=== PATIENT | male | born 1940 | race Caucasian/White ===

== ENCOUNTER → 2016-12-28 | Outpatient (CLI) | payer MEDICARE, OTHER ==
--- NOTE | 2016-12-28 11:52 | XR ---
EXAMINATION TYPE: XR chest 2V DATE OF EXAM: 12/28/2016 10:56 AM COMPARISON: 03/09/16 HISTORY: Shortness of breath TECHNIQUE: Frontal and lateral views of the chest are obtained. FINDINGS: Scattered senescent parenchymal changes noted. Hyperinflation compatible with COPD. Calcified pleural plaques again noted. Right lower lobe infiltrate with small effusion. Heart size is stable. Mediastinal structures are stable and grossly unremarkable. No evidence for hilar prominence. Degenerative changes dorsal spine. IMPRESSION: 1. Right lower lobe infiltrate with small effusion.
--- NOTE | 2016-12-28 12:10 | XR ---
EXAMINATION TYPE: XR cervical spine comp DATE OF EXAM: 12/28/2016 10:56 AM CLINICAL HISTORY: pain COMPARISON: NONE TECHNIQUE: Frontal, lateral, oblique, swimmers, and open mouth view of the cervical spine are obtaine d. FINDINGS: The cervical spine is visualized in its entirety from C1 thru the top of T1 level. It is s atisfactory in alignment without evidence of acute fracture or dislocation. The pre-vertebral soft t issue appears within normal limits. Severe degenerative changes at C4-5 through C6-7. Ventral and john filemon spondylosis. The C1-C2 articulation is unremarkable on the open mouth view. The oblique images a re within normal limits. IMPRESSION: No acute fracture or dislocation is seen in the cervical spine.ICD 10 NO FRACTURE, INITI AL EVALUATION
== END | disposition home or self-care (01) ==
LOC: RADXRMAIN 10:37
PROVIDERS: ATTEND Family Medicine
DX: J90 Pleural effusion, not elsewhere classified (principal); R91.8 Other nonspecific abnormal finding of lung field; M50.30 Other cervical disc degeneration, unspecified cervical region
CPT/HCPCS: 71020; 72050

== ENCOUNTER → 2017-01-09 | Outpatient (CLI) | payer MEDICARE, OTHER ==
--- NOTE | 2017-01-09 19:31 | MR ---
EXAMINATION TYPE: MR cervical spine wo con DATE OF EXAM: 01/09/2017 7:06 PM COMPARISON: NONE HISTORY: CERVICAL DISC DEGENERATION, NECK PAIN TECHNIQUE: Multiplanar, multisequence images of the cervical spine were acquired. C2-C3: No evidence for degenerative disc disease. No disc bulge/herniation or protrusion. No Canal stenosis. Foramina are patent bilaterally. C3-C4: Central disc bulging with facet arthropathy greater on the left. There is mild left foraminal encroachment. No Canal stenosis. C4-C5: Severe degenerative disc disease with posterior disc bulging capped by spur. This results in m oderate canal stenosis. Uncovertebral joint hypertrophy is seen with moderate bilateral foraminal enc roachment. C5-C6: Severe degenerative disc disease with posterior disc osteophyte complex resulting in moderate canal stenosis. There is bilateral moderate foraminal encroachment. C6-C7: Severe degenerative disc disease with posterior disc osteophyte complex resulting in mild effa cement of thecal sac and mild bilateral foraminal encroachment. Mild canal stenosis. C7-T1: No evidence for degenerative disc disease. No disc bulge/herniation or protrusion. No Canal stenosis. Foramina are patent bilaterally. Cervical segments are intact. There is normal alignment. Cervical spinal cord is of normal signal. Craniovertebral junction relationships are within normal limits. IMPRESSION: 1. Multilevel severe degenerative disc disease with disc osteophyte complex and foraminal encroachmen t with multilevel foraminal encroachment involving levels C4-5, C5-6 and C6-C7.
== END | disposition home or self-care (01) ==
LOC: RADMRIMAIN 18:26
PROVIDERS: ATTEND Family Medicine
DX: M50.021 Cervical disc disorder at C4-C5 level with myelopathy (principal); M25.78 Osteophyte, vertebrae
CPT/HCPCS: 72141

== ENCOUNTER → 2017-02-08 | Outpatient (CLI) | payer MEDICARE, OTHER ==
--- NOTE | 2017-02-08 13:25 | XR ---
EXAMINATION TYPE: XR chest 2V DATE OF EXAM: 02/08/2017 HISTORY: J18.9 Pneumonia. REFERENCE: Previous study dated 12/28/2016. FINDINGS: There is pleural calcification present bilaterally. There is an enlarging right pleural effusion with associated atelectatic change. The left lung is laurent ar. Heart size is obscured. Lung volumes are prominent. IMPRESSION: 1. ENLARGING RIGHT-SIDED EFFUSION. 2. EVIDENCE OF PREVIOUS ASBESTOS EXPOSURE. 3. COPD.
== END | disposition home or self-care (01) ==
LOC: RADXRMAIN 12:27
PROVIDERS: ATTEND Family Medicine
DX: J44.9 Chronic obstructive pulmonary disease, unspecified (principal); J90 Pleural effusion, not elsewhere classified; Z77.090 Contact with and (suspected) exposure to asbestos
CPT/HCPCS: 71020

== ENCOUNTER → 2017-02-09 | Outpatient (CLI) | payer MEDICARE, OTHER ==
[2017-02-09 13:52] LABS: Blood Urea Nitrogen 17 mg/dL (9-20); Non-African American GFR(MDRD) >60 (>60 ml/min/1.73 sqM)
--- NOTE | 2017-02-09 15:15 | CT ---
EXAMINATION TYPE: CT chest w con DATE OF EXAM: 02/09/2017 COMPARISON: 03/16/2016 HISTORY: 76-year-old male Pleural effusion TECHNIQUE: Contiguous axial scanning of the chest after the administration of 100 mL of Omnipaque 300 . Coronal/sagittal reconstructions performed. CT DLP: 609mGycm. Automatic exposure control utilized for a dose reduction. FINDINGS: The heart is normal size without pericardial effusion. Mild coronary vessel calcifications are presen t in remarkable for coronary artery disease. Ascending aorta is mildly ectatic at 3.7 cm. Conventional arch vessel branching anatomy. Mild atheros clerotic narrowing at the origin of the left subclavian artery. There is enlarged caliber to the main right and left pulmonary arteries at 2.6 and 2.8 cm, respective ly, suggesting underlying pulmonary arterial hypertension. Nonenlarged and mildly enlarged mediastinal lymphadenopathy is redemonstrated. This is largely stable in size measuring up to 1.3 cm in the precarinal region. A right tracheobronchial angle lymph node i s larger now measuring 1.0 cm. A 1.5 cm subcarinal lymph node is stable. There are bilateral calcified pleural plaques suggesting prior asbestos exposure especially along the hemidiaphragms. The left lung appears clear. There is a new moderate sized pleural effusion on the right. Some internal septations obtained thicke sarah, enhancing pleura is suggested suggesting a complicated effusion. There is nodular soft tissue de nsity at the right cardiophrenic angle measuring 2.5 cm, axial image 41 and opacity at the posterior right base that could represent atelectatic/consolidated lung. Mass is difficult to exclude. The visualized upper abdomen shows an anterior splenule. Bones: Normal variant of sternal foramina. No osseous destructive process. IMPRESSION: 1. Moderate-sized complicated/complex right pleural effusion with mild diffuse thickening of the pleu ra. Consider thoracentesis and fluid analysis 2. Malignant pleural effusion not excluded given patient's prior asbestos exposure and a new 2.5 cm s oft tissue mass at the right cardiophrenic angle. Lung cancer and mesothelioma are in the differentia l. 3. Opacity at the right base adjacent to the pleural effusion could represent atelectatic/consolidate d lung. Additional site of pleural-based mass is difficult to exclude at this time. 4. Nonenlarged and mildly enlarged mediastinal lymphadenopathy is relatively similar to 03/16/2016.
== END | disposition home or self-care (01) ==
LOC: RADCTMAIN 13:15
PROVIDERS: ATTEND Family Medicine
DX: J90 Pleural effusion, not elsewhere classified (principal); R59.0 Localized enlarged lymph nodes
CPT/HCPCS: 82565; 84520; 71260; 36415; Q9967

== ENCOUNTER 2017-02-22 07:50 | Day surgery (SDC) | payer MEDICARE, OTHER ==
[2017-02-22 08:33] LABS: Mean Platelet Volume 8.5
[2017-02-22 08:35] VITALS: TEMP 97.6
[2017-02-22 08:41] LABS: Prothrombin Time 10.1 sec (9.0-12.0)
[2017-02-22 09:54] VITALS: PULSE 97; RESP 16
[2017-02-22 09:55] VITALS: BP 119/64
--- NOTE | 2017-02-22 10:30 | US ---
EXAMINATION TYPE: US thoracentesis DATE OF EXAM: 02/22/2017 COMPARISON: NONE HISTORY: Pleural effusion. FINDINGS: Maximal barrier technique was utilized. The skin overlying a suitable pocket of fluid was localized and the overlying skin prepped and draped. Lidocaine was used for local anesthesia. Ultras ound was used with sterile technique. A 5 [place] catheter over guide needle was advanced into the pl eural fluid collection using ultrasound guidance and the catheter advanced, needle removed. Approxim ately 0.12 liter(s) of sanguinous fluid was removed. Catheter was withdrawn and hemostasis achieved. There is no immediate complication. The patient discharged in stable condition without complicatio n. IMPRESSION: STATUS POST ULTRASOUND GUIDED THORACENTESIS, POST PROCEDURE CHEST X-RAY PENDING. THIS NH OCEDURE WAS PERFORMED BY THE UNDERSIGNED. Specimen sent for laboratory analysis
--- NOTE | 2017-02-22 10:34 | XR ---
EXAMINATION TYPE: XR chest 1V DATE OF EXAM: 02/22/2017 COMPARISON: Prior chest x-ray 02/08/2017 HISTORY: Status post right thoracentesis TECHNIQUE: Single frontal view of the chest is obtained. FINDINGS: Abnormal increased density persists at the right lung base. No evident pneumothorax. Abnor mal density adjacent to the right heart. Calcified pleural plaques noted.. IMPRESSION: No evident complication status post thoracentesis.
[2017-02-22 13:42] LABS: RBC, Body Fluid 104000 /uL
[2017-02-22 16:05] LABS: Glucose, BF Source Pleural Fluid; LDH, Body Fluid Source Pleural Fluid; T. Protein, Body Fluid Source Pleural Fluid; Total Protein, Body Fluid 3900 mg/dL
== END 2017-02-22 09:35 | disposition home or self-care (01) ==
LOC: RADPROMAIN 07:50
PROVIDERS: ATTEND Internal Medicine
DX: J91.0 Malignant pleural effusion (principal); J92.0 Pleural plaque with presence of asbestos; C45.0 Mesothelioma of pleura; J91.8 Pleural effusion in other conditions classified elsewhere; Z79.82 Long term (current) use of aspirin; Z79.891 Long term (current) use of opiate analgesic; Z79.899 Other long term (current) drug therapy
CPT/HCPCS: 32555; 36415; 71010; 82945; 83615; 84157; 85049; 85610; 87070; 87116; 87205; 87206; 88108; 88305; 89050

== ENCOUNTER → 2017-03-06 | Outpatient (CLI) | payer MEDICARE, OTHER ==
--- NOTE | 2017-03-06 14:46 | P.CON ---
Consult Note - . Consult date: 03/06/17 Assessment/Plan:: 76-year-old gentleman who began complaining of shortness of breath this winter in [place]. He was treated for pneumonia and came back to [place]. He continued to be short of breath and was given a course of steroids. He subsequently developed shingles. He was found to have a large right pleural effusion and this was tapped. Computed tomography scan of the chest at that time was consistent with pleural plaque disease as well as trapped lung. Chest x-ray showed some improvement but persistent fluid consistent with trapped lung. He is referred by Dr. Darling for evaluation. He is asymptomatic at this time. Previous medical history is significant for hypertension. He is currently treated with hydrochlorothiazide and baby aspirin.'s previous surgical history is negative. Patient does not smoke or use drugs and drinks alcohol only rarely. He has no known ALLERGIES. Complete physical examination and review of systems are present on the chart. Discussed with the patient the findings of significant pleural effusion associated with pleural disease. Pleural fluid was exudative. The patient does have a history of his spasticity exposure. The concern of course is mesothelioma. I recommendation is to undergo diagnostic thoracoscopy with partial lung decortication appropriate pleural biopsies and placement of a Pleurx catheter. This should allow us to a rule out mesothelioma as an etiologic agent and be control his pleural effusion and maintain him in an asymptomatic status. The indications for the procedure risks versus benefits and possible complications were outlined and discussed at length with the patient his and 3 daughters. All of their questions were answered. They would like to proceed as soon as possible. We will try to proceed sometime later this week.
[2017-03-06 15:14] LABS: CH 29.9; CHCM 33.6; HCT 43.1 % (39.0-53.0); HDW 2.61; HGB 14.4 gm/dL (13.0-17.5); MCH 29.7 pg (25.0-35.0); MCHC 33.3 g/dL (31.0-37.0); MCV 89.2 fL (80.0-100.0); RBC 4.83 m/uL (4.30-5.90)
[2017-03-06 15:21] LABS: Anion Gap 11 mmol/L; Blood Urea Nitrogen 12 mg/dL (9-20); Carbon Dioxide 29 mmol/L (22-30); Chloride 102 mmol/L (98-107); Glucose 101 mg/dL (74-99); Non-African American GFR(MDRD) >60 (>60 ml/min/1.73 sqM); Potassium 4.2 mmol/L (3.5-5.1); Sodium 142 mmol/L (137-145)
== END | disposition home or self-care (01) ==
LOC: LABPAT 14:26
PROVIDERS: ATTEND Thoracic Surgery (Cardiothoracic Vascular Surgery)
DX: Z01.812 Encounter for preprocedural laboratory examination (principal); J90 Pleural effusion, not elsewhere classified; Z79.899 Other long term (current) drug therapy
CPT/HCPCS: 80051; 82565; 82947; 84520; 85027

== ENCOUNTER 2017-03-10 10:15 | Inpatient (IN) | payer MEDICARE, OTHER ==
[2017-03-08 17:38] VITALS: BMI 28.0
[~2017-03-10 10:15] MED LIST: DEXAMETHASONE SOD PHOSPHATE 10 MG/ML 1 ML VIAL IV ONE; HYDROmorphone 1 MG/ML 1 ML SYRINGE IVP PRN; LACTATED RINGERS 1,000 ML IV SCH; LIDOCAINE 1% 20 ML VIAL (10MG/ML) FOR IV START INTRADERMA PRN; MIDAZOLAM 2 MG/2 ML VIAL IV PRN; ONDANSETRON 4 MG/2 ML VIAL IVP ONE; SCOPOLAMINE 1.5MG/72HR PATCH TRANSDERM ONE; ceFAZolin 1,000 MG in DEXTROSE/WATER 1 50ML.BAG IV ONE
[2017-03-10] MEDS ORDERED: LIDOCAINE 1% INJ 10MG/ML (20 ML MDV) ONE (14:19)
[2017-03-10] MEDS ORDERED: GLYCOPYRROLATE 0.2 MG/ML 2 ML VIAL ONE (14:19)
[2017-03-10] MEDS ORDERED: MIDAZOLAM 2 MG/2 ML VIAL ONE (14:19)
[2017-03-10] MEDS ORDERED: fentaNYL (PF) 50 MCG/ML 2 ML AMP ONE (14:19)
[2017-03-10] MEDS ORDERED: PROPOFOL 10 MG/ML 20 ML VIAL IV ONE (14:19)
[2017-03-10] MEDS ORDERED: ROCURONIUM BROMIDE 10 MG/ML 10 ML VIAL IV ONE (14:19)
[2017-03-10] MEDS ORDERED: NEOSTIGMINE 1 MG/ML 10 ML VIAL ONE (14:19)
[2017-03-10] MEDS ORDERED: SUCCINYLCHOLINE CHLORIDE 100 MG/5 ML SYR IV ONE (14:19)
[2017-03-10] MEDS ORDERED: LACTATED RINGERS 1,000 ML IV ONE (15:28)
[2017-03-10] MEDS ORDERED: IPRATROPIUM-ALBUTEROL 3 ML NEB IH PRN (16:03)
[2017-03-10] MEDS ORDERED: DEXTROSE 5%-0.45% NACL 1,000 ML IV SCH (16:03)
[2017-03-10] MEDS ORDERED: ONDANSETRON 4 MG/2 ML VIAL IVP PRN (16:03)
[2017-03-10] MEDS ORDERED: MORPHINE SULFATE 2 MG/ML SYRINGE IV PRN (16:03)
[2017-03-10] MEDS ORDERED: BUPIVACAINE (PF) 0.5% 30 ML VIAL SQ ONE (16:23)
--- NOTE | 2017-03-10 16:31 | P.OP ---
Date of Procedure: 03/10/17 Preoperative Diagnosis: Complex right pleural effusion, entrapped right lung Postoperative Diagnosis: Same Procedure(s) Performed: Right thoracoscopy, partial decortication of right lung, placement of right Pleurx catheter Implants: Right Pleurx catheter Anesthesia: MUKESH Surgeon: Mk Mulligan Estimated Blood Loss (ml): 25 Pathology: other (Right pleural fluid for cytology, right pleural content for culture and pathology) Condition: stable Disposition: PACU Indications for Procedure: The patient is a 76-year-old gentleman who is had some degree of shortness of breath and dyspnea since being treated for pneumonia this winter in [place] he has had another course of antibiotics without resolution he has been found to have a complicated right pleural effusion he has undergone a couple of thoracenteses without resolution Operative Findings: On entering the pleural cavity, there was bloody pleural fluid present. There was septation of the pleural space with Fibrinet stick pre-and gelatinous material present. There was a calcified plaque noted on the diaphragm. The right lung was encased in thick pleural peel. Description of Procedure: The patient was brought to the operating room, placed supine on the operating table, anesthetized and intubated with a double-lumen endotracheal tube. The tube was positioned with fiberoptic bronchoscopy. Patient was turned in the left lateral decubitus position and the right chest sterilely prepped and draped. 2 one-inch incisions were made in the right chest. The right pleural space was entered and some bloody fluid was suctioned out. Video thoracoscope was placed. There was a lot of fibrinous debris gelatinous material and septated fluid present in the right pleural space. This was all debrided free. The lung itself was cleared off of fibrinous exudate to the greatest extent possible without opening the chest. The remainder fairly thick pleural peel covering most of the lower lobe and a portion of the middle and upper lobe. Pulse lavage was performed of the pleural space. Once we had felt comfortable that we had removed all the debris and there was no significant bleeding Pleurx catheter was placed. We began with placing a needle into the pleural space in the ninth interspace in the anterior axillary line. This was performed under thoracoscopic guidance. A wire was threaded posteriorly and superiorly into the pleural space. A small incision was made in the right upper quadrant and the site of the wire was enlarged with an incision about a centimeter long. Pleurx catheter was tunneled from the right upper quadrant to the wire site and the cuff placed just under the skin at the exit site. Introducer and dilator were placed over the guidewire under thoracoscopic visualization and then the Pleurx catheter was placed into the pleural cavity via the introducer sheath. The introducer sheath was then removed. The Pleurx catheter was secured at the exit site with a 2-0 silk. The Pleurx catheter site was closed with a 4-0 Vicryl in 2 layers. Rib blocks were performed at the level of the incisions with half percent Marcaine. The thoracoscopic incisions were closed with layers of Vicryl suture. All 3 surgical incisions were then treated with skin glue and dry sterile dressings applied. A chest tube dressing was placed around the Pleurx catheter. The Pleurx catheter was connected to a Pleur-evac and the patient awakened and transferred to recovery in stable condition.
--- NOTE | 2017-03-10 16:43 | XR ---
EXAMINATION TYPE: XR chest 1V portable DATE OF EXAM: 03/10/2017 COMPARISON: 03/03/2017 HISTORY: Catheter placement TECHNIQUE: Single frontal view of the chest is obtained. FINDINGS: There is blunting of right costophrenic angle. There is patchy infiltrate and atelectasis in the right lower lobe. There are chest leads. There is a catheter over the medial right midlung in uncertain location. I see no pneumothorax. There is no heart failure. IMPRESSION: Pleural fluid is significantly decreased compared to last exam. No heart failure. No pne umothorax.
[2017-03-10] MEDS: IPRATROPIUM-ALBUTEROL 3 ML NEB IH SCH (20:34)
[2017-03-10] MEDS: HYDROcodone/APAP 5-325MG 1 EACH TAB PO PRN (20:56)
[2017-03-10] MEDS: HEPARIN SODIUM,PORCINE 5,000 UNIT/ML 1 ML VIAL SQ SCH (20:58)
--- NOTE | 2017-03-10 21:22 | P.CNPUL ---
History of Present Illness Consult date: 03/10/17 Requesting physician: Mk Mulligan Reason for consult: pleural effusion, other (Status post thoracoscopic lung biopsy. And decortication) Chief complaint: Complicated right-sided pleural effusion History of present illness: This is a 76-year-old white male with history of asbestos associated lung disease, chronic pleural plaques, patient was seen recently by his primary care physician for intermittent episodes of cough and shortness of breath. Chest x- ray and CT of the chest showed a good sized right-sided pleural effusion and possible pleural mass with rounded atelectasis affecting the right pleural surface. There was also evidence of nonspecific lymphadenopathy. I saw this patient on consultation, and I recommended diagnostic thoracentesis which was done by Dr. Harrell, fluid came back a grossly bloody, and it exudative in nature, with significantly elevated LDH level. Cytology came back negative, however considering the significantly elevated LDH, I felt that the fluid is most likely malignant unless proven otherwise. Patient came back for follow-up in the office after his thoracentesis, and it was noted the effusion was coming back and recurrent. Hence I recommended referral to Dr. Mulligan for thoracoscopic decortication, pleural biopsy, and hopefully rule out malignancy, more specifically mesothelioma. Patient underwent surgery today, postoperatively patient was admitted to the regular medical floor, and a Pleurx catheter was placed by Dr. Mulligan. Apparently the patient was found to have a trapped lung and significantly loculated pleural effusion. Postoperative chest x-ray showed significant improvement in his right-sided pleural effusion and loculation. Presently, the patient denies any shortness of breath, no cough no wheezing, chest pain seems to be fairly well controlled. Patient had no headaches no blurred vision no weight loss, no fatigue, no fever, no chills, no palpitations, no GI symptoms, no genitourinary symptoms no arthralgia, no weakness, no myalgia, no polyuria no polydipsia, no heat or cold intolerance. Review of Systems 14 point review of systems were obtained, please refer to pertinent positives and negatives in HPI. Past Medical History Past Medical History: Hypertension, Pneumonia Additional Past Medical History / Comment(s): Asbestos exposure which is work related (no evidence of asbestosis), BACK ISSUES with herniated disc. recent Shingles now resolved, pneumonia in January, intermittent swelling feet History of Any Multi-Drug Resistant Organisms: None Reported Date of last positivie culture/infection: unknown MDRO Source:: unknown Past Surgical History: Orthopedic Surgery Additional Past Surgical History / Comment(s): reattached LEFT PINKY, epidural pain injections Past Anesthesia/Blood Transfusion Reactions: No Reported Reaction Past Psychological History: No Psychological Hx Reported Smoking Status: Never smoker - Past Family History Sister(s) Family Medical History: Cancer Additional Family Medical History / Comment(s): lung Medications and Allergies Home Medications Medication Instructions Recorded Confirmed Type Aspirin 81 mg PO DAILY 08/10/14 03/10/17 History Hydrochlorothiazide [Hydrodiuril] 25 mg PO DAILY 02/20/17 03/10/17 History Allergies Allergy/AdvReac Type Severity Reaction Status Date / Time No Known Allergies Allergy Verified 03/10/17 17:07 Physical Exam Vitals: Vital Signs Temp Pulse Pulse Pulse Resp BP BP 03/10/17 20:52 92 03/10/17 20:38 92 03/10/17 20:06 96 16 127/76 03/10/17 19:06 92 16 126/74 03/10/17 18:06 97.8 F 87 18 133/74 03/10/17 17:36 97.6 F 87 18 130/79 03/10/17 17:34 97.6 F 87 18 130/79 03/10/17 17:00 89 16 135/77 03/10/17 16:46 83 16 146/82 03/10/17 16:30 81 16 148/81 03/10/17 16:19 98.2 F 88 12 139/79 03/10/17 11:35 131/81 03/10/17 11:00 97.5 F L 86 18 150/84 Pulse Ox 03/10/17 20:52 03/10/17 20:38 03/10/17 20:06 97 03/10/17 19:06 97 03/10/17 18:06 95 03/10/17 17:36 95 03/10/17 17:34 95 03/10/17 17:00 96 03/10/17 16:46 96 03/10/17 16:30 99 03/10/17 16:19 97 03/10/17 11:35 03/10/17 11:00 96 Intake and Output 03/10/17 03/10/17 03/10/17 06:59 14:59 22:59 Intake Total 1050 600 Output Total 200 Balance 1050 400 Intake: IV 1050 600 Output: Urine 150 Estimated Blood Loss 50 Other: Weight 86.183 kg Patient Weight 03/11/17 06:59 Weight 86.183 kg Physical Exam revealed a 76-year-old white male in no distress, patient is on nasal cannula. HEENT:[Neck is supple.] [No neck masses.] [No thyromegaly.] [No JVD.] Chest: [Diminished breath sounds at the right base, Pleurx catheter noted and a draining a bloody effusion. Cardiac Exam: [Normal S1 and S2, no S3 gallop, no murmur.] Abdomen: [Soft, nontender, no megaly, no rebound, no guarding, normal bowel sounds.] Extremities: [No clubbing, no edema, no cyanosis.] Neurological Exam: [No focal neurologic deficit.] Results - Diagnostic Findings Chest x-ray: image reviewed Assessment and Plan Plan: Impression: 1 status post right thoracoscopy, partial decortication of right lung, placement of right Pleurx catheter and pleural biopsy. 2 complicated pleural effusion, possibility of malignancy is still in the differential, final pathology is pending. 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 4 possible parapneumonic effusion. 5 history of asbestos exposure. And history of asbestos pleural plaques. Recommendation: Agree with the present treatment plan, continue incentive spirometry, and possibly discharge the patient home in a.m. with Pleurx catheter in place. Patient will need to have follow-up with Dr. Harrell or Dr. Conroy in one week post discharge. Hopefully by then we have the report from the pathology lab available. Time with Patient: Greater than 30
[2017-03-10] MEDS: ceFAZolin 2 GM in SODIUM CHLORIDE 0.9% 100 ML IVPB SCH (22:17)
[2017-03-11] MEDS: HYDROcodone/APAP 5-325MG 1 EACH TAB PO PRN ×2 (04:44→09:33)
[2017-03-11 07:13] LABS: Basophils % (A) 0 %; CH 29.6; CHCM 33.8; Eosinophils # (A) 0.1 k/uL (0-0.7); Eosinophils % (A) 3 %; HCT 36.9 % (39.0-53.0); HDW 2.63; HGB 12.7 gm/dL (13.0-17.5); Luc # (Auto) 0.13; Luc % (Auto) 2; Lymphocytes % (A) 18 %; MCH 30.2 pg (25.0-35.0); MCHC 34.3 g/dL (31.0-37.0); Mean Platelet Volume 7.7; Monocytes # (A) 0.5 k/uL (0-1.0); Monocytes % (A) 9 %; Neutrophils # (A) 3.5 k/uL (1.3-7.7); Neutrophils % (A) 67 %; RBC 4.19 m/uL (4.30-5.90); RDW 12.6 % (11.5-15.5); WBC 5.3 k/uL (3.8-10.6); WBC (Perox) 5.44
[2017-03-11 07:33] LABS: Anion Gap 9 mmol/L; Blood Urea Nitrogen 15 mg/dL (9-20); Calcium 8.7 mg/dL (8.4-10.2); Carbon Dioxide 27 mmol/L (22-30); Chloride 100 mmol/L (98-107); Glucose 99 mg/dL (74-99); Non-African American GFR(MDRD) >60 (>60 ml/min/1.73 sqM); Sodium 136 mmol/L (137-145)
--- NOTE | 2017-03-11 07:40 | XR ---
EXAMINATION TYPE: XR chest 1V portable DATE OF EXAM: 03/11/2017 Comparison: 03/10/2017 Clinical History: 76-year-old male postop, history of right-sided chest tube Findings: Heart remains borderline to mildly enlarged. Focal opacity along the right heart margin. Aorta within normal limits. Lumbar vasculature within normal limits. Continued strandy atelectasis of the left ba se. There is continued patchy peripheral right basilar opacity and a small right basilar pneumothorax , unchanged from prior. Trace effusion may be present as well, on the right. A right basilar drain is present. Some scattered calcified pleural plaques compatible with prior asbestos exposure. Impression: 1. Small right basilar hydropneumothorax, suspected similar to prior exam in retrospect. 2. Right basilar opacity could represent combination of atelectasis/infiltrate and pleural thickening . 3. Known mass along the right heart margin. A few scattered calcified pleural plaques.
[2017-03-11] MEDS: ASPIRIN 81 MG PO SCH (07:50)
[2017-03-11] MEDS: ceFAZolin 2 GM in SODIUM CHLORIDE 0.9% 100 ML IVPB SCH (07:50)
[2017-03-11] MEDS: HEPARIN SODIUM,PORCINE 5,000 UNIT/ML 1 ML VIAL SQ SCH ×2 (07:50→20:08)
[2017-03-11] MEDS: HYDROCHLOROTHIAZIDE 25 MG TAB PO SCH (07:50)
[2017-03-11] MEDS: IPRATROPIUM-ALBUTEROL 3 ML NEB IH SCH ×4 (07:51→19:01)
--- NOTE | 2017-03-11 11:18 | P.PN ---
Subjective This is a 76-year-old white male with history of asbestos associated lung disease, chronic pleural plaques, patient was seen recently by his primary care physician for intermittent episodes of cough and shortness of breath. Chest x- ray and CT of the chest showed a good sized right-sided pleural effusion and possible pleural mass with rounded atelectasis affecting the right pleural surface. There was also evidence of nonspecific lymphadenopathy. I saw this patient on consultation, and I recommended diagnostic thoracentesis which was done by Dr. Harrell, fluid came back a grossly bloody, and it exudative in nature, with significantly elevated LDH level. Cytology came back negative, however considering the significantly elevated LDH, I felt that the fluid is most likely malignant unless proven otherwise. Patient came back for follow-up in the office after his thoracentesis, and it was noted the effusion was coming back and recurrent. Hence I recommended referral to Dr. Mulligan for thoracoscopic decortication, pleural biopsy, and hopefully rule out malignancy, more specifically mesothelioma. Patient underwent surgery today, postoperatively patient was admitted to the regular medical floor, and a Pleurx catheter was placed by Dr. Mulligan. Apparently the patient was found to have a trapped lung and significantly loculated pleural effusion. Postoperative chest x-ray showed significant improvement in his right-sided pleural effusion and loculation. Presently, the patient denies any shortness of breath, no cough no wheezing, chest pain seems to be fairly well controlled. Patient had no headaches no blurred vision no weight loss, no fatigue, no fever, no chills, no palpitations, no GI symptoms, no genitourinary symptoms no arthralgia, no weakness, no myalgia, no polyuria no polydipsia, no heat or cold intolerance. The patient is seen again today 03/11/2017 in follow-up on the regular medical floor. He is awake and alert in no acute distress. He did undergo a right sided Pleurx catheter placement by Dr. Mulligan yesterday. There has been 330 MLS returned thus far. He is currently maintaining O2 saturations at 90% on room air. Today's chest x-ray reveals a small right basilar hydropneumothorax. There is right basilar opacity with atelectasis. 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 Objective - Vital Signs Vital signs: Vital Signs Temp 98.2 F 03/11/17 06:00 Pulse 96 03/11/17 10:55 Resp 24 03/11/17 08:30 BP 114/63 03/11/17 08:30 Pulse Ox 90 L 03/11/17 08:30 Intake & Output 03/10/17 03/11/17 03/11/17 18:59 06:59 18:59 Intake Total 1650 1780 2600 Output Total 200 820 Balance 2954 300 0876 Weight 86.183 kg 86.183 kg Intake: IV 1650 480 Dextrose 5%-0.45% NaCl 1, 480 000 ml @ 40 mls/hr IV . Q24H [facility] Rx#:[id number] Intake, IV Titration 1100 2100 Amount Dextrose 5%-0.45% NaCl 1, 800 1000 000 ml @ 40 mls/hr IV . Q24H [facility] Rx#:[id number] Lactated Ringers 1,000 ml 1000 As IV .STK-MED ONE Rx#: [id number] ceFAZolin 2 gm In Sodium 300 100 Chloride 0.9% 100 ml @ 100 mls/hr IVPB Q8H [facility] Rx#:[id number] Oral 200 500 Output: Drainage 330 Right Chest 330 Urine 150 490 Estimated Blood Loss 50 Other: # Voids 0 - Exam Physical Exam revealed a 76-year-old white male in no distress, patient is on nasal cannula. HEENT:[Neck is supple.] [No neck masses.] [No thyromegaly.] [No JVD.] Chest: [Diminished breath sounds at the right base, Pleurx catheter noted and a draining a bloody effusion. Cardiac Exam: [Normal S1 and S2, no S3 gallop, no murmur.] Abdomen: [Soft, nontender, no megaly, no rebound, no guarding, normal bowel sounds.] Extremities: [No clubbing, no edema, no cyanosis.] Neurological Exam: [No focal neurologic deficit.] - Labs CBC & Chem 7: 03/11/17 06:47 03/11/17 06:47 Labs: Abnormal Lab Results - Last 24 Hours (Table) 03/11/17 03/11/17 Range/Units 06:47 06:47 RBC 4.19 L (4.30-5.90) m/uL Hgb 12.7 L (13.0-17.5) gm/dL Hct 36.9 L (39.0-53.0) % Sodium 136 L (137-145) mmol/L Microbiology - Last 24 Hours (Table) 03/10/17 16:12 Gram Stain - Preliminary Pleural Fluid Body Fluid Culture - Preliminary 03/10/17 16:12 Gram Stain - Preliminary Pleural Fluid Tissue Culture - Preliminary 03/10/17 16:12 Fungal Culture - Preliminary Pleural Fluid 03/10/17 16:12 Anaerobic Culture - Preliminary Pleural Fluid 03/10/17 16:12 Fungal Culture - Preliminary Pleural Fluid 03/10/17 16:12 Anaerobic Culture - Preliminary Pleural Fluid 03/10/17 16:12 Acid Fast Bacilli Culture - Preliminary Pleural Fluid 03/10/17 16:12 Acid Fast Bacilli Culture - Preliminary Pleural Fluid Assessment and Plan Plan: Impression: 1 status post right thoracoscopy, partial decortication of right lung, placement of right Pleurx catheter and pleural biopsy. 2 complicated pleural effusion, possibility of malignancy is still in the differential, final pathology is pending. 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 4 possible parapneumonic effusion. 5 history of asbestos exposure. And history of asbestos pleural plaques. Plan: The patient was seen and evaluated by Dr. Darling. His chest x-ray was reviewed. He could be discharged home from the pulmonary standpoint and follow- up in one week in our office and we can repeat a chest x-ray then. We'll await pathology results and make further recommendations at that time.
--- NOTE | 2017-03-11 12:34 | P.PN ---
Subjective Principal diagnosis: Complex right pleural effusion, entrapped right lung POD #1 right thoracoscopy, partial decortication of right lung, placement of right Pleurx catheter. Patient's currently sitting up in bed in no acute distress. States his pain is controlled. He is however incredibly anxious about being discharged home today. In addition he had an episode of urinary retention last night requiring straight catheterization. Objective - Vital Signs Vital signs: Vital Signs Temp 98.2 F 03/11/17 06:00 Pulse 96 03/11/17 10:55 Resp 24 03/11/17 08:30 BP 114/63 03/11/17 08:30 Pulse Ox 90 L 03/11/17 08:30 Intake & Output 03/10/17 03/11/17 03/11/17 18:59 06:59 18:59 Intake Total 1650 1780 2600 Output Total 200 820 Balance 2710 721 4155 Weight 86.183 kg 86.183 kg 85.1 kg Intake: IV 1650 480 Dextrose 5%-0.45% NaCl 1, 480 000 ml @ 40 mls/hr IV . Q24H [facility] Rx#:[id number] Intake, IV Titration 1100 2100 Amount Dextrose 5%-0.45% NaCl 1, 800 1000 000 ml @ 40 mls/hr IV . Q24H [facility] Rx#:[id number] Lactated Ringers 1,000 ml 1000 As IV .STK-MED ONE Rx#: [id number] ceFAZolin 2 gm In Sodium 300 100 Chloride 0.9% 100 ml @ 100 mls/hr IVPB Q8H [facility] Rx#:[id number] Oral 200 500 Output: Drainage 330 Right Chest 330 Urine 150 490 Estimated Blood Loss 50 Other: # Voids 0 - Constitutional General appearance: Present: cooperative, no acute distress - Respiratory Details: Lungs sounds diminished bilaterally, coarse breath sounds on the right side. Respirations even, nonlabored. Currently on 2 L with oxygen saturation 97%. He was trialed on room air and initially was 94%, but proceeded to decrease to 90%, hence was placed back on 2 L nasal cannula. - Cardiovascular Details: S1, S2 present. Regular rate and rhythm. - Gastrointestinal Gastrointestinal Comment(s): Abdomen soft, nontender, nondistended. Active bowel sounds 4 quadrants. Tolerating diet. - Genitourinary Genitourinary Comment(s): Due to void. - Musculoskeletal Musculoskeletal: Present: gait normal, strength equal bilaterally - Psychiatric Psychiatric: Present: A&O x's 3, appropriate affect, intact judgment & insight - Allied health notes Allied health notes reviewed: case management - Labs CBC & Chem 7: 03/11/17 06:47 03/11/17 06:47 Labs: Abnormal Lab Results - Last 24 Hours (Table) 03/11/17 03/11/17 Range/Units 06:47 06:47 RBC 4.19 L (4.30-5.90) m/uL Hgb 12.7 L (13.0-17.5) gm/dL Hct 36.9 L (39.0-53.0) % Sodium 136 L (137-145) mmol/L Microbiology - Last 24 Hours (Table) 03/10/17 16:12 Gram Stain - Preliminary Pleural Fluid Body Fluid Culture - Preliminary 03/10/17 16:12 Gram Stain - Preliminary Pleural Fluid Tissue Culture - Preliminary 03/10/17 16:12 Fungal Culture - Preliminary Pleural Fluid 03/10/17 16:12 Anaerobic Culture - Preliminary Pleural Fluid 03/10/17 16:12 Fungal Culture - Preliminary Pleural Fluid 03/10/17 16:12 Anaerobic Culture - Preliminary Pleural Fluid 03/10/17 16:12 Acid Fast Bacilli Culture - Preliminary Pleural Fluid 03/10/17 16:12 Acid Fast Bacilli Culture - Preliminary Pleural Fluid - Imaging and Cardiology Chest x-ray: report reviewed, image reviewed Assessment and Plan (1) Recurrent right pleural effusion Status: Acute (2) History of pneumonia Status: Acute (3) History of thoracentesis Status: Acute (4) H/O asbestos exposure Status: Acute Plan: 1. [facility] was discontinued this morning, Pleurx catheter was capped. 2. Will do teaching with the patient and family members regarding Pleurx catheter drainage. 3. RN instructed to get patient up ambulate in the hallway. When patient voids bladder scan needs to be done. If there is no voiding 6 hours, RN is to bladder scan and straight cath for urinary retention greater than 300 mL. 4. Continue current medication regimen. 5. May discontinue this afternoon versus tomorrow morning depending on patient comfort. Time with Patient: Greater than 30
[2017-03-11 23:54] VITALS: RESP 16
[2017-03-12] MEDS: HYDROcodone/APAP 5-325MG 1 EACH TAB PO PRN ×3 (04:38→13:20)
[2017-03-12] MEDS: IPRATROPIUM-ALBUTEROL 3 ML NEB IH SCH ×2 (07:23→11:15)
[2017-03-12 07:39] VITALS: BP 107/55; TEMP 97.8
[2017-03-12] MEDS ORDERED: BISACODYL 10 MG SUPP RECTAL STA (08:09)
[2017-03-12] MEDS ORDERED: LACTULOSE 20 GM/30 ML CUP PO ONE (08:09)
[2017-03-12] MEDS: HEPARIN SODIUM,PORCINE 5,000 UNIT/ML 1 ML VIAL SQ SCH (08:11)
[2017-03-12] MEDS: ASPIRIN 81 MG PO SCH (08:11)
[2017-03-12] MEDS: HYDROCHLOROTHIAZIDE 25 MG TAB PO SCH (08:11)
--- NOTE | 2017-03-12 09:44 | P.PN ---
<Meli Ospina - Last Filed: 03/12/17 09:40> Subjective Principal diagnosis: Complex right pleural effusion, entrapped right lung POD #2 right thoracoscopy, partial decortication of right lung, placement of right Pleurx catheter. Postoperative urinary retention, resolved, expected outcome of surgery. Patient's currently sitting up in bed in no acute distress. States his pain is controlled. Urinary retention has resolved. Patient has been on and off oxygen overnight. Does state that he is ready to go home but may need oxygen. Objective - Vital Signs Vital signs: Vital Signs Temp 97.8 F 03/12/17 07:00 Pulse 100 03/12/17 07:36 Resp 16 03/12/17 08:00 BP 107/55 03/12/17 07:00 Pulse Ox 95 03/12/17 07:25 Intake & Output 03/11/17 03/12/17 03/12/17 18:59 06:59 18:59 Intake Total 5260 1500 Output Total 1640 600 200 Balance 3620 900 -200 Weight 85.1 kg 85.1 kg Intake: Intake, IV Titration 4200 Amount Dextrose 5%-0.45% NaCl 1, 2000 000 ml @ 40 mls/hr IV . Q24H [facility] Rx#:[id number] Lactated Ringers 1,000 ml 2000 As IV .STK-MED ONE Rx#: [id number] ceFAZolin 2 gm In Sodium 200 Chloride 0.9% 100 ml @ 100 mls/hr IVPB Q8H [facility] Rx#:[id number] Oral 1060 1500 Output: Urine 1390 600 200 Post Void Residual 250 Other: # Voids 1 3 1 - Constitutional General appearance: Present: cooperative, no acute distress - Respiratory Details: Lungs sounds diminished bilaterally. Respirations even, nonlabored. Currently on 2 L nasal cannula with oxygen saturation 95%. Right-sided Pleurx catheter present, capped, covered with dry intact dressing. - Cardiovascular Details: S1, S2 present. Regular rate and rhythm. - Gastrointestinal Gastrointestinal Comment(s): Abdomen soft, nontender, nondistended. Active bowel sounds 4 quadrants. Tolerating diet. - Genitourinary Genitourinary Comment(s): Continues to void large quantities clear, yellow urine. - Musculoskeletal Musculoskeletal: Present: gait normal, strength equal bilaterally - Psychiatric Psychiatric: Present: A&O x's 3, appropriate affect, intact judgment & insight - Allied health notes Allied health notes reviewed: nursing - Labs CBC & Chem 7: 03/11/17 06:47 03/11/17 06:47 Labs: Microbiology - Last 24 Hours (Table) 03/10/17 16:12 Acid Fast Bacilli Smear - Final Pleural Fluid Acid Fast Bacilli Culture - Preliminary 03/10/17 16:12 Acid Fast Bacilli Smear - Final Pleural Fluid Acid Fast Bacilli Culture - Preliminary 03/10/17 16:12 Gram Stain - Preliminary Pleural Fluid Tissue Culture - Preliminary 03/10/17 16:12 Gram Stain - Preliminary Pleural Fluid Body Fluid Culture - Preliminary Assessment and Plan (1) Recurrent right pleural effusion Status: Acute (2) History of pneumonia Status: Acute (3) History of thoracentesis Status: Acute (4) H/O asbestos exposure Status: Acute Plan: 1. Will drain patient's Pleurx this morning with teaching done with family. 2. Will perform home oxygen evaluation. 3. Continue current medication regimen. 4. Will discontinue later today with home care and possible home oxygen. To follow-up with Dr. Darling and Dr. Mulligan in the office. Time with Patient: Greater than 30 <Fernando Mares - Last Filed: 03/12/17 11:25> Objective - Vital Signs Vital signs: Vital Signs Temp 97.8 F 03/12/17 07:00 Pulse 92 03/12/17 11:15 Resp 16 03/12/17 08:00 BP 107/55 03/12/17 07:00 Pulse Ox 95 03/12/17 07:25 Intake & Output 03/11/17 03/12/17 03/12/17 18:59 06:59 18:59 Intake Total 5260 1500 Output Total 1640 600 200 Balance 3620 900 -200 Weight 85.1 kg 85.1 kg Intake: Intake, IV Titration 4200 Amount Dextrose 5%-0.45% NaCl 1, 2000 000 ml @ 40 mls/hr IV . Q24H [facility] Rx#:[id number] Lactated Ringers 1,000 ml 2000 As IV .STK-MED ONE Rx#: [id number] ceFAZolin 2 gm In Sodium 200 Chloride 0.9% 100 ml @ 100 mls/hr IVPB Q8H [facility] Rx#:[id number] Oral 1060 1500 Output: Urine 1390 600 200 Post Void Residual 250 Other: # Voids 1 3 1 - Labs CBC & Chem 7: 03/11/17 06:47 03/11/17 06:47 Labs: Microbiology - Last 24 Hours (Table) 03/10/17 16:12 Acid Fast Bacilli Smear - Final Pleural Fluid Acid Fast Bacilli Culture - Preliminary 03/10/17 16:12 Acid Fast Bacilli Smear - Final Pleural Fluid Acid Fast Bacilli Culture - Preliminary 03/10/17 16:12 Gram Stain - Preliminary Pleural Fluid Tissue Culture - Preliminary 03/10/17 16:12 Gram Stain - Preliminary Pleural Fluid Body Fluid Culture - Preliminary Assessment and Plan Plan: The patient has been able to void spontaneously overnight. He remains on 2 L nasal cannula. We will arrange for him to receive home oxygen. He will be discharged home later today.
--- NOTE | 2017-03-12 10:18 | P.PN ---
Subjective This is a 76-year-old white male with history of asbestos associated lung disease, chronic pleural plaques, patient was seen recently by his primary care physician for intermittent episodes of cough and shortness of breath. Chest x- ray and CT of the chest showed a good sized right-sided pleural effusion and possible pleural mass with rounded atelectasis affecting the right pleural surface. There was also evidence of nonspecific lymphadenopathy. I saw this patient on consultation, and I recommended diagnostic thoracentesis which was done by Dr. Harrell, fluid came back a grossly bloody, and it exudative in nature, with significantly elevated LDH level. Cytology came back negative, however considering the significantly elevated LDH, I felt that the fluid is most likely malignant unless proven otherwise. Patient came back for follow-up in the office after his thoracentesis, and it was noted the effusion was coming back and recurrent. Hence I recommended referral to Dr. Mulligan for thoracoscopic decortication, pleural biopsy, and hopefully rule out malignancy, more specifically mesothelioma. Patient underwent surgery today, postoperatively patient was admitted to the regular medical floor, and a Pleurx catheter was placed by Dr. Mulligan. Apparently the patient was found to have a trapped lung and significantly loculated pleural effusion. Postoperative chest x-ray showed significant improvement in his right-sided pleural effusion and loculation. Presently, the patient denies any shortness of breath, no cough no wheezing, chest pain seems to be fairly well controlled. Patient had no headaches no blurred vision no weight loss, no fatigue, no fever, no chills, no palpitations, no GI symptoms, no genitourinary symptoms no arthralgia, no weakness, no myalgia, no polyuria no polydipsia, no heat or cold intolerance. The patient is seen again today 03/11/2017 in follow-up on the regular medical floor. He is awake and alert in no acute distress. He did undergo a right sided Pleurx catheter placement by Dr. Mulligan yesterday. There has been 330 MLS returned thus far. He is currently maintaining O2 saturations at 90% on room air. Today's chest x-ray reveals a small right basilar hydropneumothorax. There is right basilar opacity with atelectasis. 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 The patient is seen again today 03/12/2017 in follow-up on the regular medical floor. He continues to do well. He is awake and alert in no acute distress. He does have some desaturations in the 80s on room air. He will be going home with home oxygen for now. He is breathing easier today as compared to yesterday. Did have this Pleurx catheter drained as well. No worsening shortness of breath, cough or congestion. Objective - Vital Signs Vital signs: Vital Signs Temp 97.8 F 03/12/17 07:00 Pulse 100 03/12/17 07:36 Resp 16 03/12/17 08:00 BP 107/55 03/12/17 07:00 Pulse Ox 95 03/12/17 07:25 Intake & Output 03/11/17 03/12/17 03/12/17 18:59 06:59 18:59 Intake Total 5260 1500 Output Total 1640 600 200 Balance 3620 900 -200 Weight 85.1 kg 85.1 kg Intake: Intake, IV Titration 4200 Amount Dextrose 5%-0.45% NaCl 1, 2000 000 ml @ 40 mls/hr IV . Q24H [facility] Rx#:[id number] Lactated Ringers 1,000 ml 2000 As IV .STK-MED ONE Rx#: [id number] ceFAZolin 2 gm In Sodium 200 Chloride 0.9% 100 ml @ 100 mls/hr IVPB Q8H [facility] Rx#:[id number] Oral 1060 1500 Output: Urine 1390 600 200 Post Void Residual 250 Other: # Voids 1 3 1 - Exam Physical Exam revealed a 76-year-old white male in no distress, patient is on nasal cannula. HEENT:[Neck is supple.] [No neck masses.] [No thyromegaly.] [No JVD.] Chest: [Diminished breath sounds at the right base, Pleurx catheter noted and a draining a bloody effusion. Cardiac Exam: [Normal S1 and S2, no S3 gallop, no murmur.] Abdomen: [Soft, nontender, no megaly, no rebound, no guarding, normal bowel sounds.] Extremities: [No clubbing, no edema, no cyanosis.] Neurological Exam: [No focal neurologic deficit.] - Labs CBC & Chem 7: 03/11/17 06:47 03/11/17 06:47 Labs: Microbiology - Last 24 Hours (Table) 03/10/17 16:12 Acid Fast Bacilli Smear - Final Pleural Fluid Acid Fast Bacilli Culture - Preliminary 03/10/17 16:12 Acid Fast Bacilli Smear - Final Pleural Fluid Acid Fast Bacilli Culture - Preliminary 03/10/17 16:12 Gram Stain - Preliminary Pleural Fluid Tissue Culture - Preliminary 03/10/17 16:12 Gram Stain - Preliminary Pleural Fluid Body Fluid Culture - Preliminary Assessment and Plan Plan: Impression: 1 status post right thoracoscopy, partial decortication of right lung, placement of right Pleurx catheter and pleural biopsy. 2 complicated pleural effusion, possibility of malignancy is still in the differential, final pathology is pending. 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 4 possible parapneumonic effusion. 5 history of asbestos exposure. And history of asbestos pleural plaques. Plan: The patient was seen and evaluated by Dr. Darling. He could be discharged home from the pulmonary standpoint and follow-up in one week in our office and we can repeat a chest x-ray then. O2 will be ordered. We'll await pathology results and make further recommendations at that time.
[2017-03-12 11:26] VITALS: PULSE 100
--- NOTE | 2017-03-14 13:07 | P.DS ---
Providers Date of admission: 03/10/17 10:15 Attending physician: Mk Mulligan Consults: 03/11/17 12:33 Consult Physician Routine Consulting Provider: Payton Darling Reason/Comments: pulmonary management Do you want consulting provider notified?: Already Contacted Primary care physician: Jean Hickey - Discharge Diagnosis(es) (1) Recurrent right pleural effusion Status: Acute (2) History of pneumonia Status: Acute (3) History of thoracentesis Status: Acute (4) H/O asbestos exposure Status: Acute Hospital Course: PRINCIPAL PROCEDURE: [] 1.[ Right thoracoscopy, partial decortication of right lung, placement of right Pleurx catheter] HISTORY OF PRESENT ILLNESS: [This 76-year-old gentleman with history of asbestos exposure and chronic pleural plaques was seen by his primary care physician for intermittent episodes of cough and shortness of breath. He had chest x-rays and a CAT scan of the chest which demonstrated right-sided pleural effusion with possible pleural mass, as well as atelectasis affecting the right pleural surface. In addition, he had nonspecific lymphadenopathy. He was referred to Dr. Harrell for diagnostic thoracentesis. Fluid collected was exudative, cytology was negative but due to a significantly elevated LDH it was felt that malignancy was a possibility. He continued to follow with Dr. Harrell for recurrent effusions. He was referred to Dr. Mulligan for biopsy and surgical recommendations for complex right pleural effusion and entrapped right lung. Dr. Mulligan discussed surgical interventions, all risks and benefits were explained to the patient and his family, and the patient agreed to surgery.] HOSPITAL COURSE:[ The patient was brought to the hospital on 03/10/2017, taken to the preoperative area, prepared in usual fashion, and subsequently taken to the operating room where Dr. Mulligan performed an elective right thoracoscopy, partial decortication of the right lung, and placement of a right Pleurx catheter. Upon completion of surgery the patient was extubated and taken to the postanesthesia care unit where he was recovered, monitored hemodynamically, and eventually admitted to the medical/surgical unit for further monitoring as his Pleurx catheter was connected to an atrium drainage system. On postop day # 1 his Pleurx catheter was disconnected from the atrium, and was capped. The patient did have some urinary retention which resolved without intervention. The family and patient received written and verbal teaching as well as a demonstration of appropriate drainage using the Pleurx system. The patient's oxygen was titrated down, he was ambulatory in the hallway, and he was ready to be discharged home on postoperative day #2 with [facility] care to follow. He received written and verbal instruction regarding his medications, activity restrictions, signs and symptoms requiring physician notification, and follow- up appointments.] COMPLICATIONS: [The patient experienced urinary retention postoperatively which resolved without intervention.] CONSULTATIONS: 1.[ Dr. Darling from pulmonology] DISCHARGE INSTRUCTIONS: 1. No driving for 2 weeks, or until physician gives their ok. 2. The patient should sleep in their own bed, no medical bed needed.. 3. No heavy lifting. 4. Continue pain control per as needed orders. 5. Continue with incentive spirometry 6. Home care to teach/reinforce drainage of pleurx catheter with patient/ family. 7. Patient may drain pleurex catheter as needed for symptom management. Do not drain more than 1000 ml per 24 hours. Dressing to be changed when pleurex cath drained, but at least every 3 days. Home care to call Dr. Mulligan's office weekly with drainage amounts. [phone] Plan - Discharge Summary New Discharge Prescriptions: New HYDROcodone/APAP 5-325MG [[place] 5-325] 1 - 2 each PO Q6HR PRN #30 tab PRN Reason: Pain 6-10 Continue Aspirin 81 mg PO DAILY Hydrochlorothiazide [Hydrodiuril] 25 mg PO DAILY Discharge Medication List Aspirin 81 mg PO DAILY 08/10/14 [History] Hydrochlorothiazide [Hydrodiuril] 25 mg PO DAILY 02/20/17 [History] HYDROcodone/APAP 5-325MG [[place] 5-325] 1 - 2 each PO Q6HR PRN #30 tab 03/12/17 [ Rx] Follow up Appointment(s)/Referral(s): Payton Darling MD [STAFF PHYSICIAN] - 1 Week Mk Mulligan MD [STAFF PHYSICIAN] - 1 Week [facility], [NON-STAFF] - Patient Instructions/Handouts: Hydrocodone/Acetaminophen (By mouth), Viral Pneumonia (DC), Thoracentesis (DC), Pleural Effusion (DC) Activity/Diet/Wound Care/Special Instructions: DISCHARGE INSTRUCTIONS: 1. No driving for 2 weeks, or until physician gives their ok. 2. The patient should sleep in their own bed, no medical bed needed.. 3. No heavy lifting. 4. Continue pain control per as needed orders. 5. Continue with incentive spirometry 6. Home care to teach/reinforce drainage of pleurx catheter with patient/ family. 7. Patient may drain pleurex catheter as needed for symptom management. Do not drain more than 1000 ml per 24 hours. Dressing to be changed when pleurex cath drained, but at least every 3 days. Home care to call Dr. Mulligan's office weekly with drainage amounts. [phone] [facility] to follow with patient. Please contact doctors office on Monday to make appointments Discharge Disposition: HOME WITH HOME HEALTH SERVICES
--- NOTE | 2017-03-22 14:22 | CDI ---
In responding to this query, please exercise your independent professional judgment. The [facility] Coding Staff and Clinical Documentation Specialists appreciate your assistance in clarifying documentation, maintaining compliance with coding guidelines, accurately documenting patients condition and capturing severity of illness. The fact that a question is asked does not imply that any particular answer is desired or expected. Communication forms are a method of clarifying documentation and are not made part of the Legal Health Record. Thank you in advance for your clarification. Last Revision, November 2015 Mayra Beth [address] [facility] [place] [address] Documentation Clarification Form Date: 03/22/2017 2:07:00 PM From: Elinor Cici Phone: Admit Date: 03/10/2017 10:15:00 AM Patient Name: Toan Watson Visit Number: [id number] Discharge Date: Dr. 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 He continued to be short of breath and was given a course of steroids. Patient was found to have a large right [facility] was consistent with pleural palque disease as well as trapped lung. Chest x- ray showed some improvement but persistent fluid consistent with trapped lung. Patient history/risk factors: History of asbestos exposure. Clinical Indicators: Pleural effusion associated with pleural disease. Shortness of breath. Treatment: Thoracenteses without resolution. In your professional opinion, do you agree with the pathology report specifying Malignant Mesothelioma Sarcomatoid Type? Yes No Other (please specify) Unable to determine Please document in your progress notes and discharge summary in order to capture severity of illness and risk of mortality. Include clinical findings that support your diagnosis. FYI: Press F11 to launch patient chart If you have a question about this query, please contact Rani Crum, Skeet Operator at [phone]. THOMAS
== END 2017-03-12 14:26 | disposition home health service (06) | DRG 827 ==
LOC: 2ORMAIN 10:15 → 5MS5E 16:02
PROVIDERS: ADMIT Thoracic Surgery (Cardiothoracic Vascular Surgery); ATTEND Thoracic Surgery (Cardiothoracic Vascular Surgery)
PROC: 0WH933Z Insertion of Infusion Device into Right Pleural Cavity, Percutaneous Approach (ICD-10-PCS; 2017-03-10)
PROC: 0BDN4ZZ Extraction of Right Pleura, Percutaneous Endoscopic Approach (ICD-10-PCS; principal; 2017-03-10 12:00)
DX: C45.9 Mesothelioma, unspecified (principal); J90 Pleural effusion, not elsewhere classified; J94.8 Other specified pleural conditions; J98.11 Atelectasis; I10 Essential (primary) hypertension; R33.8 Other retention of urine; R74.0 Nonspecific elevation of levels of transaminase and lactic acid dehydrogenase [LDH]; J98.4 Other disorders of lung; Z79.82 Long term (current) use of aspirin; Z79.899 Other long term (current) drug therapy; Z87.01 Personal history of pneumonia (recurrent); Z77.090 Contact with and (suspected) exposure to asbestos
CPT/HCPCS: 71010; 80048; 85025; 87070; 87075; 87102; 87116; 87205; 87206; 88305; 88341; 88342; 94640; 94760

== ENCOUNTER 2017-03-13 03:57 | Emergency (ER) | payer MEDICARE, OTHER ==
[2017-03-13 04:01] VITALS: TEMP 98.4
[2017-03-13] MEDS ORDERED: ALBUTEROL NEBULIZED 2.5 MG/3 ML INHALATION STA (04:08)
[2017-03-13] MEDS ORDERED: SODIUM CHLORIDE 0.9% 1,000 ML IV STA (04:08)
[2017-03-13] MEDS ORDERED: IPRATROPIUM 0.5 MG/2.5 ML NEBU INHALATION STA (04:08)
--- NOTE | 2017-03-13 04:23 | ED ---
General Adult HPI - General Chief complaint: Shortness of Breath Stated complaint: JESSICA Time Seen by Provider: 03/13/17 04:07 Source: patient, RN notes reviewed, old records reviewed Mode of arrival: wheelchair Limitations: no limitations - History of Present Illness Initial comments: This is a 76-year-old male to the ER for evaluation. Patient is a for evaluation of shortness of breath, increased arely with increased cough and congestion, history of asthma history of heart disease. Patient has history of high blood pressure history of pneumonia. No fevers, does have increased cough and congestion. Patient states he does currently of drain tubes in his lungs, and the recently placed for drainage - Related Data Home Medications Medication Instructions Recorded Confirmed Aspirin 81 mg PO DAILY 08/10/14 03/13/17 Hydrochlorothiazide [Hydrodiuril] 25 mg PO DAILY 02/20/17 03/13/17 Previous Rx's Medication Instructions Recorded HYDROcodone/APAP 5-325MG [[place] 1 - 2 each PO Q6HR PRN #30 tab 03/12/17 5-325] Allergies Allergy/AdvReac Type Severity Reaction Status Date / Time No Known Allergies Allergy Verified 03/10/17 17:07 Review of Systems ROS Statement: Those systems with pertinent positive or pertinent negative responses have been documented in the HPI. ROS Other: All systems not noted in ROS Statement are negative. Past Medical History Past Medical History: Hypertension, Pneumonia Additional Past Medical History / Comment(s): Asbestos exposure which is work related (no evidence of asbestosis), BACK ISSUES with herniated disc. recent Shingles now resolved, pneumonia in January, intermittent swelling feet History of Any Multi-Drug Resistant Organisms: None Reported Date of last positivie culture/infection: unknown MDRO Source:: unknown Past Surgical History: Orthopedic Surgery Additional Past Surgical History / Comment(s): reattached LEFT PINKY, epidural pain injections; Bilateral thoracotomy tubes placed Past Anesthesia/Blood Transfusion Reactions: No Reported Reaction Past Psychological History: No Psychological Hx Reported Smoking Status: Never smoker Past Alcohol Use History: None Reported Past Drug Use History: None Reported - Past Family History Sister(s) Family Medical History: Cancer Additional Family Medical History / Comment(s): lung General Exam Limitations: no limitations General appearance: alert, in no apparent distress, anxious Head exam: Present: atraumatic, normocephalic, normal inspection Eye exam: Present: normal appearance, PERRL, EOMI. Absent: scleral icterus, conjunctival injection, periorbital swelling ENT exam: Present: normal exam, mucous membranes moist Neck exam: Present: normal inspection. Absent: tenderness, meningismus, lymphadenopathy Respiratory exam: Present: normal lung sounds bilaterally, respiratory distress , wheezes, accessory muscle use, decreased breath sounds, prolonged expiratory. Absent: rales, rhonchi, stridor Cardiovascular Exam: Present: regular rate, normal rhythm, normal heart sounds. Absent: systolic murmur, diastolic murmur, rubs, gallop, clicks GI/Abdominal exam: Present: soft, normal bowel sounds. Absent: distended, tenderness, guarding, rebound, rigid Extremities exam: Present: normal inspection, full ROM, normal capillary refill. Absent: tenderness, pedal edema, joint swelling, calf tenderness Back exam: Present: normal inspection Neurological exam: Present: alert, oriented X3, CN II-XII intact Psychiatric exam: Present: normal affect, normal mood Skin exam: Present: warm, dry, intact, normal color. Absent: rash Course Vital Signs 03/13/17 03/13/17 03/13/17 03:58 04:01 05:01 Temperature 98.4 F Pulse Rate 94 89 84 Respiratory 18 16 Rate Blood Pressure 130/71 137/82 O2 Sat by Pulse 94 L 98 Oximetry 03/13/17 03/13/17 05:18 05:44 Temperature Pulse Rate 89 89 Respiratory Rate Blood Pressure O2 Sat by Pulse Oximetry - Reevaluation(s) Reevaluation #1: 03/13/17 07:17 Patient symptoms are much improved after breathing treatment, oxygenation Reevaluation #2: 03/13/17 07:17 Patient was ambulatory around the emergency department, patient had no decrease in pulse ox and feels good EKG Findings - EKG Comments: EKG Findings:: EKG shows normal sinus rate of 90, ND 166, QRS 142, QTC 49 Medical Decision Making - Medical Decision Making 76 mallear for evaluation of shortness of cough and congestion, actually eventually his lab work is normal patient can be discharged home, at this time he feels well - Lab Data Result diagrams: 03/13/17 04:28 03/13/17 04:28 Lab Results 03/13/17 03/13/17 03/13/17 Range/Units 04:28 04:28 04:28 WBC 5.5 (3.8-10.6) k/uL RBC 4.45 (4.30-5.90) m/uL Hgb 13.5 (13.0-17.5) gm/dL Hct 39.3 (39.0-53.0) % MCV 88.3 (80.0-100.0) fL MCH 30.3 (25.0-35.0) pg MCHC 34.3 (31.0-37.0) g/dL RDW 12.7 (11.5-15.5) % Plt Count 231 (150-450) k/uL Neutrophils % 66 % Lymphocytes % 16 % Monocytes % 10 % Eosinophils % 5 % Basophils % 1 % Neutrophils # 3.6 (1.3-7.7) k/uL Lymphocytes # 0.9 L (1.0-4.8) k/uL Monocytes # 0.5 (0-1.0) k/uL Eosinophils # 0.3 (0-0.7) k/uL Basophils # 0.0 (0-0.2) k/uL PT (9.0-12.0) sec INR (<1.1) APTT (22.0-30.0) sec Sodium 137 (137-145) mmol/L Potassium 3.9 (3.5-5.1) mmol/L Chloride 99 (98-107) mmol/L Carbon Dioxide 26 (22-30) mmol/L Anion Gap 12 mmol/L BUN 14 (9-20) mg/dL Creatinine 0.94 (0.66-1.25) mg/dL Est GFR (MDRD) Af Amer >60 (>60 ml/min/1.73 sqM) Est GFR (MDRD) Non-Af >60 (>60 ml/min/1.73 sqM) Glucose 108 H (74-99) mg/dL Calcium 9.4 (8.4-10.2) mg/dL Magnesium 1.9 (1.6-2.3) mg/dL Total Bilirubin 1.0 (0.2-1.3) mg/dL AST 27 (17-59) U/L ALT 22 (21-72) U/L Alkaline Phosphatase 115 (38-126) U/L Total Creatine Kinase 120 (55-170) U/L CK-MB (CK-2) 0.9 (0.0-2.4) ng/mL CK-MB (CK-2) Rel Index 0.8 Troponin I <0.012 (0.000-0.034) ng/mL NT-Pro-B Natriuret Pep pg/mL Total Protein 7.0 (6.3-8.2) g/dL Albumin 3.8 (3.5-5.0) g/dL 03/13/17 03/13/17 Range/Units 04:28 04:28 WBC (3.8-10.6) k/uL RBC (4.30-5.90) m/uL Hgb (13.0-17.5) gm/dL Hct (39.0-53.0) % MCV (80.0-100.0) fL MCH (25.0-35.0) pg MCHC (31.0-37.0) g/dL RDW (11.5-15.5) % Plt Count (150-450) k/uL Neutrophils % % Lymphocytes % % Monocytes % % Eosinophils % % Basophils % % Neutrophils # (1.3-7.7) k/uL Lymphocytes # (1.0-4.8) k/uL Monocytes # (0-1.0) k/uL Eosinophils # (0-0.7) k/uL Basophils # (0-0.2) k/uL PT 10.1 (9.0-12.0) sec INR 1.0 (<1.1) APTT 25.0 (22.0-30.0) sec Sodium (137-145) mmol/L Potassium (3.5-5.1) mmol/L Chloride (98-107) mmol/L Carbon Dioxide (22-30) mmol/L Anion Gap mmol/L BUN (9-20) mg/dL Creatinine (0.66-1.25) mg/dL Est GFR (MDRD) Af Amer (>60 ml/min/1.73 sqM) Est GFR (MDRD) Non-Af (>60 ml/min/1.73 sqM) Glucose (74-99) mg/dL Calcium (8.4-10.2) mg/dL Magnesium (1.6-2.3) mg/dL Total Bilirubin (0.2-1.3) mg/dL AST (17-59) U/L ALT (21-72) U/L Alkaline Phosphatase (38-126) U/L Total Creatine Kinase (55-170) U/L CK-MB (CK-2) (0.0-2.4) ng/mL CK-MB (CK-2) Rel Index Troponin I (0.000-0.034) ng/mL NT-Pro-B Natriuret Pep 68 pg/mL Total Protein (6.3-8.2) g/dL Albumin (3.5-5.0) g/dL - Radiology Data Radiology results: report reviewed (Chest x-ray remains improved from prior), image reviewed Disposition Clinical Impression: History of thoracentesis, H/O asbestos exposure Disposition: HOME SELF-CARE Condition: Good Instructions: Bronchospasm (ED) Referrals: Jean Hickey MD [Primary Care Provider] - 1-2 days
[2017-03-13 04:51] LABS: Basophils % (A) 1 %; CH 29.8; CHCM 33.9; Eosinophils # (A) 0.3 k/uL (0-0.7); Eosinophils % (A) 5 %; HCT 39.3 % (39.0-53.0); HDW 2.63; HGB 13.5 gm/dL (13.0-17.5); Luc # (Auto) 0.18; Luc % (Auto) 3; Lymphocytes # (A) 0.9 k/uL (1.0-4.8); Lymphocytes % (A) 16 %; MCH 30.3 pg (25.0-35.0); MCHC 34.3 g/dL (31.0-37.0); MCV 88.3 fL (80.0-100.0); Mean Platelet Volume 7.5; Monocytes # (A) 0.5 k/uL (0-1.0); Monocytes % (A) 10 %; Neutrophils # (A) 3.6 k/uL (1.3-7.7); Neutrophils % (A) 66 %; RBC 4.45 m/uL (4.30-5.90); RDW 12.7 % (11.5-15.5); WBC 5.5 k/uL (3.8-10.6); WBC (Perox) 5.97
[2017-03-13] MEDS ORDERED: ALBUTEROL NEBULIZED 2.5 MG/3 ML INHALATION ONE (04:52)
[2017-03-13] MEDS ORDERED: IPRATROPIUM 0.5 MG/2.5 ML NEBU INHALATION ONE (04:52)
[2017-03-13 05:03] LABS: Creatine Kinase 120 U/L (55-170)
[2017-03-13 05:10] LABS: Prothrombin Time 10.1 sec (9.0-12.0)
[2017-03-13 05:16] LABS: Creatine Kinase MB 0.9 ng/mL (0.0-2.4); Troponin I <0.012 ng/mL (0.000-0.034)
--- NOTE | 2017-03-13 05:46 | XR ---
EXAM: XR Chest, 2 Views CLINICAL HISTORY: Reason: difficulty breathing TECHNIQUE: Frontal and lateral views of the chest. COMPARISON: Frontal view of the chest dated 03/11/2017 FINDINGS: Lungs: Continued strandy atelectasis of the left base, as seen on prior study. Continued patchy peripheral right basilar opacity, similar to prior study. Pleural space: There has been interval increase in size of the right pleural effusion. Right basilar pneumothorax is likely still present, although less conspicuous on this study than on the prior. Scattered pleural plaques are again seen compatible with prior asbestos exposure. Heart: The heart is borderline enlarged. Mediastinum: Unremarkable. Bones/joints: Degenerative changes in both shoulders.. Tubes, lines and devices: Right basilar drain is again present. IMPRESSION: 1. Interval increase in the size of the right pleural effusion, still defined as small. Right basilar pneumothorax is still likely present, although less conspicuous on this study than on the prior. 2. Again right basilar opacity may represent combination of atelectasis/infiltrate and pleural thickening. 3. No other significant interval change.
[2017-03-13] MEDS ORDERED: ONDANSETRON 4 MG/2 ML VIAL IVP STA (06:17)
[2017-03-13 06:52] LABS: ALT 22 U/L (21-72); AST 27 U/L (17-59); Alkaline Phosphatase 115 U/L (38-126); Anion Gap 12 mmol/L; Blood Urea Nitrogen 14 mg/dL (9-20); Calcium 9.4 mg/dL (8.4-10.2); Carbon Dioxide 26 mmol/L (22-30); Chloride 99 mmol/L (98-107); Glucose 108 mg/dL (74-99); Magnesium 1.9 mg/dL (1.6-2.3); Non-African American GFR(MDRD) >60 (>60 ml/min/1.73 sqM); Potassium 3.9 mmol/L (3.5-5.1); Sodium 137 mmol/L (137-145)
[2017-03-13 07:20] VITALS: RESP 18
[2017-03-13 07:22] VITALS: BP 117/68; PULSE 97
== END 2017-03-13 07:38 | disposition home or self-care (01) ==
LOC: EC 03:57
DX: R06.02 Shortness of breath (principal); Z77.090 Contact with and (suspected) exposure to asbestos; R05 Cough; R09.89 Other specified symptoms and signs involving the circulatory and respiratory systems; R06.2 Wheezing; I10 Essential (primary) hypertension; Z79.82 Long term (current) use of aspirin; Z79.899 Other long term (current) drug therapy; Z87.39 Personal history of other diseases of the musculoskeletal system and connective tissue; Z83.6 Family history of other diseases of the respiratory system; Z98.890 Other specified postprocedural states
CPT/HCPCS: 99285; 96374; 96361 ×3; 36415; 94640; 83880; 80053; 82550; 82553; 83735; 84550; 84484; 85025; 85610; 85730; 71020; J2405

== ENCOUNTER → 2017-03-14 | Outpatient (CLI) | payer MEDICARE, OTHER ==
--- NOTE | 2017-03-14 14:23 | US ---
EXAMINATION TYPE: US venous doppler duplex LE RT DATE OF EXAM: 03/14/2017 2:12 PM COMPARISON: NONE CLINICAL HISTORY: R60.0 LOCALIZED EDEMA. Localized swelling on right foot lateral to big toe. Patien ts states being on baby aspirin. No hx of blood clots. Patient just had surgery on lung Monday. SIDE PERFORMED: Right TECHNIQUE: The lower extremity deep venous system is examined utilizing real time linear array sonog rubens with graded compression, doppler sonography and color-flow sonography. VESSELS IMAGED: External Iliac Vein (EIV) Common Femoral Vein Deep Femoral Vein Greater Saphenous Vein * Femoral Vein Popliteal Vein Proximal Calf Veins (* superficial vessels) Right Leg: Appears negative for DVT Grayscale, color doppler, spectral doppler imaging performed of the deep veins of the right lower ext remity. There is normal flow, compressibility, vascular waveforms in the right lower extremity. IMPRESSION: No ultrasound evidence for acute DVT in the right lower extremity.
== END | disposition home or self-care (01) ==
LOC: RADUSWWP 13:45
PROVIDERS: ATTEND Family Medicine
DX: R60.0 Localized edema (principal)

== ENCOUNTER → 2017-06-06 | Outpatient (CLI) | payer MEDICARE, OTHER ==
--- NOTE | 2017-06-06 15:13 | XR ---
Left foot HISTORY: Pain and swelling laterally, localized edema 3 views of the left foot Bone mineralization is reduced. Alignment and joint spaces are maintained, mild degenerative change p resent at the first metatarsophalangeal joint. No fracture or dislocation. There is a plantar calcane al spur. Soft tissue swelling is noted. Probable vascular calcifications are present. IMPRESSION: Soft tissue swelling.
--- NOTE | 2017-06-06 16:03 | US ---
EXAMINATION TYPE: US venous doppler duplex LE BI DATE OF EXAM: 06/06/2017 3:37 PM COMPARISON: 03/14/2017 CLINICAL HISTORY: R60.0 EDEMA. Left foot edema x 2 days; on Chemotherapy SIDE PERFORMED: Bilateral TECHNIQUE: The lower extremity deep venous system is examined utilizing real time linear array sonog rubens with graded compression, doppler sonography and color-flow sonography. VESSELS IMAGED: Common Femoral Vein Deep Femoral Vein Greater Saphenous Vein * Femoral Vein Popliteal Vein Small Saphenous Vein * Proximal Calf Veins (* superficial vessels) Right Leg: Negative for acute DVT, however, Femoral Vein venous valves are noted to be nonmobile. Left Leg: Negative for acute DVT, however, Femoral Vein venous valves are noted to be nonmobile. Tech findings called to Kait Hickey at exam's end.JJ IMPRESSION: 1. There is no diagnostic evidence of acute DVT. 2. Valvular malfunction within the veins can be associated with venous reflux. Correlate clinically.
== END | disposition home or self-care (01) ==
LOC: RADUSWWP 14:37
PROVIDERS: ATTEND Family Medicine
DX: R60.0 Localized edema (principal); M79.89 Other specified soft tissue disorders
CPT/HCPCS: 93970

== ENCOUNTER → 2017-06-08 | Outpatient (CLI) | payer MEDICARE, OTHER ==
[2017-06-08 08:49] LABS: Anisocytosis Slight; Aty Lym Flag Slight; CH 29.5; CHCM 32.6; HCT 36.7 % (39.0-53.0); HDW 2.57; MCH 29.7 pg (25.0-35.0); MCHC 32.7 g/dL (31.0-37.0); MCV 90.8 fL (80.0-100.0); Mean Platelet Volume 7.8; RBC 4.05 m/uL (4.30-5.90); RDW 16.5 % (11.5-15.5); WBC 3.1 k/uL (3.8-10.6); WBC (Perox) 3.33
[2017-06-08 08:57] LABS: ALT 43 U/L (21-72); AST 30 U/L (17-59); Alkaline Phosphatase 122 U/L (38-126); Anion Gap 11 mmol/L; Blood Urea Nitrogen 14 mg/dL (9-20); Calcium 9.6 mg/dL (8.4-10.2); Carbon Dioxide 25 mmol/L (22-30); Chloride 103 mmol/L (98-107); Glucose 121 mg/dL (74-99); Non-African American GFR(MDRD) >60 (>60 ml/min/1.73 sqM); Potassium 3.8 mmol/L (3.5-5.1); Sodium 139 mmol/L (137-145); Total Bilirubin 0.6 mg/dL (0.2-1.3); Total Protein 6.9 g/dL (6.3-8.2)
[2017-06-08 09:17] LABS: Add Differential Manual Differential
[2017-06-08 09:25] LABS: Nucleated Red Blood Cells 0 /100 WBC (0-0); Total Cells Counted 100
[2017-06-08 09:34] LABS: Erythrocyte Sedimentation Rate 70 mm/hr (0-15)
== END | disposition home or self-care (01) ==
LOC: LABWHC1 08:11
PROVIDERS: ATTEND Family Medicine
DX: M10.9 Gout, unspecified (principal); R60.9 Edema, unspecified
CPT/HCPCS: 36415; 80053; 84550; 85025; 85652

== ENCOUNTER → 2018-01-04 | Outpatient (CLI) | payer MEDICARE, OTHER ==
--- NOTE | 2018-01-04 12:30 | US ---
EXAMINATION TYPE: US venous doppler duplex LE BI DATE OF EXAM: 01/04/2018 12:05 PM COMPARISON: US 06/06/2017 CLINICAL HISTORY: R60.0 Localized Edema; bilateral ankle edema x 3 days; chemotherapy completed 3 mo nths ago for lung mesothelioma; SIDE PERFORMED: Bilateral TECHNIQUE: The lower extremity deep venous system is examined utilizing real time linear array sonog rubens with graded compression, doppler sonography and color-flow sonography. VESSELS IMAGED: Common Femoral Vein Deep Femoral Vein Greater Saphenous Vein * Femoral Vein Popliteal Vein Small Saphenous Vein * Proximal Calf Veins (* superficial vessels) Grayscale, color doppler, spectral doppler imaging performed of the deep veins of the lower extremiti es. There is normal flow, compressibility, vascular waveforms. Right Leg: Negative for acute DVT; thickened, nonmobile venous valves are noted in Femoral Vein as p reviously seen. Left Leg: Negative for acute DVT; thickened, nonmobile venous valves are noted in Femoral Vein and i n one of two calf veins. Tech findings called to Singh at Dr. Hanna Hickey's Office at exam's end. IMPRESSION: 1. No sonographic evidence of deep venous thrombosis within the bilateral lower extremities. 2. Redemonstration of valvular dysfunction that may contribute to venous reflux.
== END | disposition home or self-care (01) ==
LOC: RADUSWWP 11:16
PROVIDERS: ATTEND Family Medicine
DX: I38 Endocarditis, valve unspecified (principal); R60.0 Localized edema
CPT/HCPCS: 93970

== ENCOUNTER 2018-01-31 10:26 | Inpatient (IN) | payer MEDICARE, OTHER ==
[2018-01-31 15:49] LABS: Glucose,Whole Blood 136 mg/dL (75-99)
[2018-01-31 16:54] VITALS: BMI 28.8
--- NOTE | 2018-01-31 18:09 | P.GSCN ---
History of Present Illness Consult date: 01/31/18 Reason for Consult: Pericardial effusion and left pleural effusion, evaluate for possible pericardial window or left Pleurx catheter placement. Requesting physician: Marco Lancaster History of present illness: This is 77-year-old gentleman who is followed by Dr. Jean Hickey on an outpatient basis. His past medical history significant for hypertension, remote history of pneumonia, history of advanced stage IV mesothelioma and a history of right pleural effusion with history of right thoracoscopic with partial decortication of the right lung and placement of right Pleurx catheter in March 2017. On 01/30/2018 the patient presented to the emergency department at [facility] with complaints of shortness of breath and severe pain to his right upper chest, right shoulder blade and right arm. He denied any fever, chills, nausea, vomiting, or diarrhea. The patient recently has been seen by an oncologist out of [place] and has participated in a clinical trial of immunotherapy for his mesothelioma. The patient tolerated 1 week of the immunotherapy and decided to not continue to travel to [place] for the therapy. Subsequently while at [facility] he underwent a chest x-ray which showed findings compatible with lung mass and possible pleural disease with metastasis, he also underwent a CT angiogram of his chest on 01/31/2018 which demonstrated no evidence of pulmonary embolus, a loculated left pleural effusion, extensive atelectasis and pericardial effusion. Due to the patient's presenting symptoms, CT angiogram findings of loculated left pleural effusion and pericardial effusion the patient was transferred to [facility] to be further evaluated by Dr. Kaylee Norris from cardiothoracic surgery. Review of Systems A 14 point review of systems was completed and was negative except as mentioned in HPI. Past Medical History Past Medical History: Cancer, Hypertension, Pneumonia Additional Past Medical History / Comment(s): Asbestos exposure which is work related (no evidence of asbestosis), mesothelioma, BACK ISSUES with herniated disc.Shingles, pneumonia in January, intermittent swelling feet History of Any Multi-Drug Resistant Organisms: None Reported Year Discovered:: unknown MDRO Source:: unknown Past Surgical History: Orthopedic Surgery Additional Past Surgical History / Comment(s): reattached LEFT PINKY, epidural pain injections; right Pleurx catheter March 2017. Past Anesthesia/Blood Transfusion Reactions: No Reported Reaction Past Psychological History: No Psychological Hx Reported Smoking Status: Former smoker Past Alcohol Use History: None Reported Past Drug Use History: None Reported - Past Family History Sister(s) Family Medical History: Cancer Additional Family Medical History / Comment(s): lung Medications and Allergies Home Medications Medication Instructions Recorded Confirmed Type Aspirin 81 mg PO DAILY 08/10/14 01/31/18 History Hydrochlorothiazide [Hydrodiuril] 25 mg PO DAILY 02/20/17 01/31/18 History ALPRAZolam [Xanax] 0.5 mg PO DAILY PRN 01/31/18 01/31/18 History Docusate [Colace] 100 mg PO BID PRN 01/31/18 01/31/18 History Hydrocodone/Acetaminophen [[place] 1 tab PO Q6H PRN 01/31/18 01/31/18 History 10-325] Pregabalin [Lyrica] 75 mg PO BID 01/31/18 01/31/18 History Sennosides [Senna] 8.6 mg PO DAILY PRN 01/31/18 01/31/18 History fentaNYL 25MCG/HR PATCH [Duragesic 1 patch TRANSDERM Q72H 01/31/18 01/31/18 History 25MCG/HR] Allergies Allergy/AdvReac Type Severity Reaction Status Date / Time No Known Allergies Allergy Verified 01/31/18 17:17 Surgical - Exam Vital Signs Pulse Resp Pulse Ox 105 H 20 94 L 01/31/18 15:48 01/31/18 15:48 01/31/18 15:48 - General Rate is pain 2 out of 10 on the pain scale. well developed, well nourished, no distress - Eyes PERRL, normal ocular movement - ENT normal pinna, normal nares, normal mucosa, no hearing loss, no congestion - Neck No lymphadenopathy. no masses, no bruits, trachea midline, no venous distension - Respiratory Lung sounds with few scattered crackles throughout, diminished to his left lobes. Respirations are symmetrical and nonlabored. Oxygen saturation are 95% on 3 L nasal cannula. - Cardiovascular Regular rhythm and rate. S1 and S2 present, negative for S3, gallop or murmur. +2 edema to his bilateral lower extremities. Sequential compression devices in place to his bilateral lower extremities. - Abdomen Abdomen is soft, nontender and nondistended. Active bowel sounds all 4 abdominal quadrants. No organomegaly. No guarding or rigidity. - Genitourinary Deferred - Rectum Deferred - Integumentary no rash, no growths, no abnormal pigmentation - Neurologic normal coordination, normal sensation - Musculoskeletal normal gait, normal posture - Psychiatric oriented to time, oriented to person, oriented to place, speech is normal, memory intact Results - Labs Abnormal Lab Results - Last 24 Hours (Table) 01/31/18 Range/Units 15:47 POC Glucose (mg/dL) 136 H (75-99) mg/dL - Imaging Chest x-ray: report reviewed CT scan - chest: report reviewed Assessment and Plan (1) Pleural effusion, left Current Visit: Yes Status: Acute Code(s): J90 - PLEURAL EFFUSION, NOT ELSEWHERE CLASSIFIED SNOMED Code(s): 37892463 (2) Pericardial effusion Current Visit: Yes Status: Acute Code(s): I31.3 - PERICARDIAL EFFUSION ( NONINFLAMMATORY) SNOMED Code(s): 662980356 (3) Mesothelioma of lung Current Visit: Yes Status: Acute Code(s): C45.7 - MESOTHELIOMA OF OTHER SITES SNOMED Code(s): 160041587 (4) Hypertension Current Visit: Yes Status: Acute Code(s): I10 - ESSENTIAL (PRIMARY) HYPERTENSION SNOMED Code(s): 40318723 (5) Degenerative joint disease Current Visit: Yes Status: Acute Code(s): M19.90 - UNSPECIFIED OSTEOARTHRITIS, UNSPECIFIED SITE SNOMED Code(s): 037787887 (6) History of pneumonia Current Visit: No Status: Acute Code(s): Z87.01 - PERSONAL HISTORY OF PNEUMONIA (RECURRENT) SNOMED Code(s): 843530751 Plan: Patient was seen and examined. His chart and diagnostics were reviewed. Patient was seen and examined by Dr. Kaylee Norris. Dr. Norris discussed with the patient and his daughters results of the CT angiogram of his chest. There is no immediate indication for a pericardial window or Pleurx catheter placement. Symptomatic management with medical therapy. If symptoms worsen May consider left thoracentesis. Medical management per primary care service. Thank you Dr. Lancaster for this consult and we look for to working with you in the care of your patient. Time with Patient: Greater than 30
[2018-01-31] MEDS ORDERED: DOCUSATE 100 MG CAP PO PRN (18:23)
[2018-01-31] MEDS ORDERED: ALPRAZolam 0.5 MG TAB PO PRN (18:23)
[2018-01-31] MEDS ORDERED: SENNOSIDES 8.6 MG TAB PO PRN (18:23)
[2018-01-31] MEDS: HYDROcodone/APAP 10-325MG 1 EACH TAB PO PRN (18:49)
[2018-01-31] MEDS: SODIUM CHLORIDE 0.9% 1,000 ML IV SCH (18:50)
--- NOTE | 2018-01-31 20:25 | XR ---
EXAMINATION TYPE: XR chest 1V DATE OF EXAM: 01/31/2018 COMPARISON: 03/13/2017 INDICATION: Congestive heart failure short of breath TECHNIQUE: Single frontal view of the chest is obtained. FINDINGS: The heart size is enlarged. The pulmonary vasculature is normal. There is a 4.6 cm mass in the periphery of the right midlung. Moderate left and small right pleural e ffusion is present. There is infiltrate at the right base. IMPRESSION: 1. Moderate left and small right pleural effusion. 2. Right midlung peripheral density. Additional workup is recommended.
[2018-01-31] MEDS: HYDROmorphone 4 MG TABLET PO PRN (20:35)
[2018-01-31] MEDS: PREGABALIN 75 MG CAP PO SCH (20:35)
[2018-01-31] MEDS: valACYclovir 500 MG TAB PO SCH (20:35)
[2018-02-01] MEDS: HYDROmorphone 4 MG TABLET PO PRN ×3 (00:06→14:02)
[2018-02-01] MEDS: HEPARIN SODIUM,PORCINE 5,000 UNIT/ML 1 ML VIAL SQ SCH ×2 (00:06→08:21)
[2018-02-01] MEDS ORDERED: ALPRAZolam 0.5 MG TAB ONE (02:25)
[2018-02-01] MEDS ORDERED: HYDROcodone/APAP 10-325MG 1 EACH TAB ONE (02:25)
[2018-02-01] MEDS: SODIUM CHLORIDE 0.9% 1,000 ML IV SCH (03:30)
[2018-02-01] MEDS ORDERED: SODIUM CHLORIDE 0.9% 1,000 ML IV SCH (05:00)
[2018-02-01] MEDS ORDERED: FUROSEMIDE 10 MG/ML 4 ML VIAL ONE (05:38)
[2018-02-01 05:49] LABS: Anion Gap 11 mmol/L; Blood Urea Nitrogen 15 mg/dL (9-20); Calcium 8.6 mg/dL (8.4-10.2); Carbon Dioxide 27 mmol/L (22-30); Chloride 96 mmol/L (98-107); Glucose 114 mg/dL (74-99); Magnesium 1.9 mg/dL (1.6-2.3); Phosphorus 3.7 mg/dL (2.5-4.5); Sodium 134 mmol/L (137-145)
[2018-02-01 05:59] LABS: Anisocytosis Slight; HGB 10.2 gm/dL (13.0-17.5); Hypochromasia Slight; MCH 29.6 pg (25.0-35.0); MCHC 32.8 g/dL (31.0-37.0); Platelet Count 254 k/uL (150-450); Poikilocytosis Slight; RBC 3.45 m/uL (4.30-5.90); WBC 4.3 k/uL (3.8-10.6)
[2018-02-01 06:48] VITALS: TEMP 97.8
[2018-02-01] MEDS ORDERED: PANTOPRAZOLE 40 MG TABLET PO SCH (07:30)
--- NOTE | 2018-02-01 07:54 | XR ---
EXAMINATION TYPE: XR chest 1V DATE OF EXAM: 02/01/2018 COMPARISON: Prior chest 01/31/2018 HISTORY: Congestive heart failure TECHNIQUE: Single frontal view of the chest is obtained. FINDINGS: Findings are similar to prior exam. IMPRESSION: Findings compatible with congestive heart failure. Right upper lobe lung mass. 5 basilar effusion suspected. Correlate to exclude pneumonia.
[2018-02-01] MEDS: valACYclovir 500 MG TAB PO SCH (08:21)
--- NOTE | 2018-02-01 08:34 | P.CONS ---
History of Present Illness - Reason for Consult Consult date: 02/01/18 [place] Requesting physician: Ashley Hernandez - Chief Complaint Pain - History of Present Illness Mr Watson is a 77 y.o. male who originally presented to [facility] with severe pain as well as acute respiratory failure with hypoxia needing supplemental oxygen. He has a known history of metastatic mesothleoma diagnosed in the summer of 2016. After diagnosis he tranferred his care to the [facility] as well as the [facility] for further treatment options. He underwent treatment with Carboplatin, Almta. He progressed and was placed on clinical trial with immunotherapy. He unfortunetly continued to progressed and most recently was iniated on a clinical trial with med "[id number]". He has only received one treatment on this trial, which was last week infusion. His daughter is at bedside. Patient states he has been having some chronic back and chest pain and is what he came in for when he was noted to have some respiratory distress. He is a lifelong non-smoker, but was exposed to asbestos working in a [employer] room as well as [place] [employer]. Over the past few weeks he has had some weight gain related to water retention. His overall pain and SOB has significantly worsened, making it difficult to sleep. Patient CT of the chest was negative for PE however did show a loculated pleural effusion with extensive atelectasis. Patient has previously had a right-sided chest tube last February or March at [facility] with Dr. Mulligan. Now his fluid is on the left side and was transferred back to [facility] on with his cardiothoracic surgeon Dr. Mulligan. Upon evaluation from cardiothoracic surgeon they recommended that the patient was not a surgical candidate at that time. 02/01/18 - He has been evaluated this am in the ICU. He is comfortable. daughter at bedside and we discussed palliative versus hospice versus poor statistical responses from next line therapy Review of Systems A 14 point review was assessed and completed and all negative except HPI Past Medical History Past Medical History: Cancer, Hypertension, Pneumonia Additional Past Medical History / Comment(s): Asbestos exposure which is work related (no evidence of asbestosis), mesothelioma, BACK ISSUES with herniated disc.Shingles, pneumonia in January, intermittent swelling feet History of Any Multi-Drug Resistant Organisms: None Reported Year Discovered:: unknown MDRO Source:: unknown Past Surgical History: Orthopedic Surgery Additional Past Surgical History / Comment(s): reattached LEFT PINKY, epidural pain injections; right Pleurx catheter March 2017. Past Anesthesia/Blood Transfusion Reactions: No Reported Reaction Past Psychological History: No Psychological Hx Reported Smoking Status: Former smoker Past Alcohol Use History: None Reported Past Drug Use History: None Reported - Past Family History Sister(s) Family Medical History: Cancer Additional Family Medical History / Comment(s): lung Medications and Allergies Home Medications Medication Instructions Recorded Confirmed Type ALPRAZolam [Xanax] 0.5 mg PO DAILY PRN 01/31/18 01/31/18 History Hydrocodone/Acetaminophen [[place] 1 tab PO Q6H PRN 01/31/18 01/31/18 History 10-325] fentaNYL 25MCG/HR PATCH [Duragesic 1 patch TRANSDERM Q72H 01/31/18 01/31/18 History 25MCG/HR] Ipratropium-Albuterol Nebulize 3 ml INHALATION RT-TID ampul.neb 02/01/18 Rx [Duoneb 0.5 mg-3 mg/3 ml Soln] Allergies Allergy/AdvReac Type Severity Reaction Status Date / Time No Known Allergies Allergy Verified 01/31/18 17:17 Physical Exam Vitals: Vital Signs Temp Pulse Resp BP Pulse Ox 02/01/18 08:21 95 02/01/18 07:00 93 13 102/73 97 02/01/18 06:00 90 24 119/89 96 02/01/18 05:56 97.8 F 89 15 96 02/01/18 04:00 25 H 02/01/18 01:00 91 25 H 132/87 95 02/01/18 00:00 97.9 F 95 20 119/76 92 L 01/31/18 23:17 16 01/31/18 23:05 95 12 124/80 94 L 01/31/18 23:00 96 16 124/80 94 L 01/31/18 22:00 96 19 160/89 93 L 01/31/18 21:00 102 H 28 H 160/89 92 L 01/31/18 20:00 97.4 F L 101 H 28 H 96/69 94 L 01/31/18 19:00 106 H 25 H 114/61 93 L 01/31/18 18:00 99 29 H 123/66 94 L 01/31/18 17:00 98 24 115/66 95 01/31/18 16:00 104 H 22 122/76 94 L 01/31/18 15:48 105 H 20 94 L Intake and Output 01/31/18 02/01/18 02/01/18 22:59 06:59 14:59 Intake Total 600 560 100 Output Total 150 50 650 Balance 450 510 -550 Intake: IV 600 560 100 Sodium Chloride 0.9% 1, 600 560 100 000 ml @ 100 mls/hr IV . Q10H [facility] Rx#:[id number] Output: Urine 150 50 650 Other: Voiding Method Urinal Urinal Weight 88.5 kg - Constitutional General appearance: cooperative, no acute distress - EENT Eyes: EOMI, PERRLA ENT: NA/AT, normal oropharynx - Neck Neck: normal ROM - Respiratory Respiratory: bilateral: diminished, rhonchi - Cardiovascular Rhythm: irregularly irregular leg Peripheral Edema: bilateral: 2+ - Gastrointestinal General gastrointestinal: normal bowel sounds, soft, tenderness - Integumentary Integumentary: pale - Neurologic Neurologic: CNII-XII intact - Musculoskeletal Musculoskeletal: generalized weakness, strength equal bilaterally - Psychiatric Psychiatric: A&O x's 3, appropriate affect, intact judgment & insight Results CBC & Chem 7: 02/01/18 04:35 02/01/18 04:35 Labs: Abnormal Lab Results - Last 24 Hours (Table) 01/31/18 02/01/18 02/01/18 Range/Units 15:47 04:35 04:35 RBC 3.45 L (4.30-5.90) m/uL Hgb 10.2 L (13.0-17.5) gm/dL Hct 31.0 L (39.0-53.0) % RDW 16.0 H (11.5-15.5) % Lymphocytes # 0.6 L (1.0-4.8) k/uL Sodium 134 L (137-145) mmol/L Chloride 96 L (98-107) mmol/L Glucose 114 H (74-99) mg/dL POC Glucose (mg/dL) 136 H (75-99) mg/dL Assessment and Plan Plan: Assessment and Recommendations: 1. Metastatic Advanced Stage Mesothelioma - Multiple lines of therapy with progression of disease - Prognosis is overall poor - Discussion related to next line, palliative, hospice care all discussed with patient and daughter - Hospice is a resonable option at this time related to his advanced disease state and the risk verse benefit side effect profile and statical outcome with next line therapies. - Recommended follow-up with Dr. Vanegas his primary Oncologist for final recommendations on persuing clinical trial versus hospice care 2. Pericardial effusion and increased respiratory distress: - Not a surgical candidate at this time, unless becomes emergent - Per Cardiothoracic surgery to monitor and provide supportive care, agree. 3. Acute on Chronic Persistent pain secondary to underlying cancer - Continue pain management and palliative measures Physician Attestation: I have completed the full history and physical of this patient and agree with the above dictation by Lisseth Ramos NP Dictated as a scribe.
[2018-02-01 08:43] LABS: Eosinophils # (M) 0.22 k/uL (0-0.7); Lymphocytes # (M) 0.47 k/uL (1.0-4.8); Monocytes # (M) 0.47 k/uL (0-1.0); Neutrophils # (M) 3.14 k/uL (1.3-7.7); Neutrophils % (M) 73 %; Nucleated Red Blood Cells 0 /100 WBC (0-0); Total Cells Counted 100
[2018-02-01 08:44] LABS: Poikilocytosis (M) Present
[2018-02-01] MEDS ORDERED: ASPIRIN 81 MG PO SCH (09:00)
--- NOTE | 2018-02-01 09:38 | P.PN ---
Subjective Progress Note Date: 02/01/18 Principal diagnosis: Pericardial effusion, left pleural effusion, previous medical history of hypertension, pneumonia, stage IV mesothelioma, right pleural effusion status post right thoracoscopic decortication and placement of right Pleurx catheter in March 2017. Patient's currently sitting up in chair in no acute distress. Denies pain, shortness of breath. States he feels better than when he came in. Only complaint is continued bilateral lower extremity edema. Objective - Vital Signs Vital signs: Vital Signs Temp 97.8 F 02/01/18 08:00 Pulse 101 H 02/01/18 09:00 Resp 19 02/01/18 09:00 BP 94/68 02/01/18 09:00 Pulse Ox 94 L 02/01/18 09:00 Intake & Output 01/31/18 02/01/18 02/01/18 18:59 06:59 18:59 Intake Total 200 960 220 Output Total 200 1300 Balance 200 760 -1080 Weight 88.5 kg Intake: IV 200 960 220 Sodium Chloride 0.9% 1, 200 960 220 000 ml @ 100 mls/hr IV . Q10H [facility] Rx#:[id number] Output: Urine 200 1300 Other: Voiding Method Urinal Urinal # Bowel Movements 0 - Constitutional General appearance: Present: cooperative, no acute distress - Respiratory Details: Lungs sounds diminished bilaterally, left greater than right. Respirations even , nonlabored. Currently on 2 L nasal cannula with oxygen saturation 95%. - Cardiovascular Details: S1, S2 present. Regular rate and rhythm, sinus rhythm on telemetry. Palpable peripheral pulses bilaterally. 3+ bilateral lower extremity edema present. No Pain or tenderness noted. - Gastrointestinal Gastrointestinal Comment(s): Abdomen soft, nontender, nondistended. Active bowel sounds 4 quadrants. Tolerating diet. - Genitourinary Genitourinary Comment(s): Continues to void clear, yellow urine. - Integumentary Integumentary Comment(s): Skin is warm and dry with evidence of good perfusion. - Neurologic Neurologic: Present: CNII-XII intact - Musculoskeletal Musculoskeletal: Present: gait normal, strength equal bilaterally - Psychiatric Psychiatric: Present: A&O x's 3, appropriate affect, intact judgment & insight - Allied health notes Allied health notes reviewed: nursing - Labs CBC & Chem 7: 02/01/18 04:35 02/01/18 04:35 Labs: Abnormal Lab Results - Last 24 Hours (Table) 01/31/18 02/01/18 02/01/18 Range/Units 15:47 04:35 04:35 RBC 3.45 L (4.30-5.90) m/uL Hgb 10.2 L (13.0-17.5) gm/dL Hct 31.0 L (39.0-53.0) % RDW 16.0 H (11.5-15.5) % Lymphocytes # (Manual) 0.47 L (1.0-4.8) k/uL Sodium 134 L (137-145) mmol/L Chloride 96 L (98-107) mmol/L Glucose 114 H (74-99) mg/dL POC Glucose (mg/dL) 136 H (75-99) mg/dL - Imaging and Cardiology Chest x-ray: report reviewed, image reviewed Assessment and Plan (1) Hypertension Current Visit: Yes Status: Chronic Code(s): I10 - ESSENTIAL (PRIMARY) HYPERTENSION SNOMED Code(s): 76803802 (2) Mesothelioma of lung Current Visit: Yes Status: Chronic Code(s): C45.7 - MESOTHELIOMA OF OTHER SITES SNOMED Code(s): 085243186 (3) Pericardial effusion Current Visit: Yes Status: Acute Code(s): I31.3 - PERICARDIAL EFFUSION ( NONINFLAMMATORY) SNOMED Code(s): 508887668 (4) Pleural effusion, left Current Visit: Yes Status: Acute Code(s): J90 - PLEURAL EFFUSION, NOT ELSEWHERE CLASSIFIED SNOMED Code(s): 98096212 (5) History of pneumonia Current Visit: No Status: Resolved Code(s): Z87.01 - PERSONAL HISTORY OF PNEUMONIA (RECURRENT) SNOMED Code(s): 914004918 Plan: 1. No surgical indication for treatment of pericardial or left pleural effusion. If patient becomes symptomatic may consider left thoracentesis. 2. Medical management per primary service. 3. Pulmonary management per Dr. Hua. 4. Oncological management per Dr. Jimenez. 5. Will sign off. Please call us with any questions. Time with Patient: Greater than 30
[2018-02-01] MEDS: MAGNESIUM SULFATE-D5W PMX 1 GM in DEXTROSE/WATER 1 100ML.BAG IVPB SCH ×2 (11:18→11:19)
[2018-02-01 11:45] VITALS: BP 113/66; PULSE 96; RESP 34
--- NOTE | 2018-02-01 11:57 | P.HPIM ---
History of Present Illness 77-year-old male was transferred from [facility] for evaluation by cardiac surgeon. Patient was found to have pericardial effusion and pulmonary effusion. Patient has a history of a mesothelioma that is been treated in [facility]. Review of Systems Constitutional: Reports lethargy, Reports weakness Respiratory: Reports cough, Reports dyspnea Past Medical History Past Medical History: Cancer, Hypertension, Pneumonia Additional Past Medical History / Comment(s): Asbestos exposure which is work related (no evidence of asbestosis), mesothelioma, BACK ISSUES with herniated disc.Shingles, pneumonia in January, intermittent swelling feet History of Any Multi-Drug Resistant Organisms: None Reported Date of last positivie culture/infection: unknown MDRO Source:: unknown Past Surgical History: Orthopedic Surgery Additional Past Surgical History / Comment(s): reattached LEFT PINKY, epidural pain injections; right Pleurx catheter March 2017. Past Anesthesia/Blood Transfusion Reactions: No Reported Reaction Past Psychological History: No Psychological Hx Reported Smoking Status: Former smoker Past Alcohol Use History: None Reported Past Drug Use History: None Reported - Past Family History Sister(s) Family Medical History: Cancer Additional Family Medical History / Comment(s): lung Medications and Allergies Home Medications Medication Instructions Recorded Confirmed Type Aspirin 81 mg PO DAILY 08/10/14 01/31/18 History Hydrochlorothiazide [Hydrodiuril] 25 mg PO DAILY 02/20/17 01/31/18 History ALPRAZolam [Xanax] 0.5 mg PO DAILY PRN 01/31/18 01/31/18 History Docusate [Colace] 100 mg PO BID PRN 01/31/18 01/31/18 History Hydrocodone/Acetaminophen [[place] 1 tab PO Q6H PRN 01/31/18 01/31/18 History 10-325] Pregabalin [Lyrica] 75 mg PO BID 01/31/18 01/31/18 History Sennosides [Senna] 8.6 mg PO DAILY PRN 01/31/18 01/31/18 History fentaNYL 25MCG/HR PATCH [Duragesic 1 patch TRANSDERM Q72H 01/31/18 01/31/18 History 25MCG/HR] Allergies Allergy/AdvReac Type Severity Reaction Status Date / Time No Known Allergies Allergy Verified 01/31/18 17:17 Physical Exam Vitals: Vital Signs Temp Pulse Resp BP Pulse Ox 05/31/18 11:00 113/66 02/01/18 10:00 96 34 H 119/76 92 L 02/01/18 09:00 101 H 19 94/68 94 L 02/01/18 08:21 95 02/01/18 08:00 97.8 F 99 18 108/77 95 02/01/18 07:00 93 13 102/73 97 02/01/18 06:00 90 24 119/89 96 02/01/18 05:56 97.8 F 89 15 96 02/01/18 04:00 25 H 02/01/18 01:00 91 25 H 132/87 95 02/01/18 00:00 97.9 F 95 20 119/76 92 L 01/31/18 23:17 16 01/31/18 23:05 95 12 124/80 94 L 01/31/18 23:00 96 16 124/80 94 L 01/31/18 22:00 96 19 160/89 93 L 01/31/18 21:00 102 H 28 H 160/89 92 L 01/31/18 20:00 97.4 F L 101 H 28 H 96/69 94 L 01/31/18 19:00 106 H 25 H 114/61 93 L 01/31/18 18:00 99 29 H 123/66 94 L 01/31/18 17:00 98 24 115/66 95 01/31/18 16:00 104 H 22 122/76 94 L 01/31/18 15:48 105 H 20 94 L Intake and Output 01/31/18 02/01/18 02/01/18 22:59 06:59 14:59 Intake Total 600 560 220 Output Total 159 17 4781 Balance 450 510 -1080 Intake: IV 600 560 220 Sodium Chloride 0.9% 1, 600 560 220 000 ml @ 100 mls/hr IV . Q10H [facility] Rx#:[id number] Output: Urine 730 70 0932 Other: Voiding Method Urinal Urinal Urinal # Bowel Movements 0 Weight 88.5 kg - Constitutional General appearance: mild distress, obese - EENT Eyes: PERRLA Ears: bilateral: normal - Neck Neck: normal ROM - Respiratory Respiratory: bilateral: diminished - Cardiovascular Rhythm: regular ankle Peripheral Edema: bilateral: 2+ - Gastrointestinal General gastrointestinal: soft - Integumentary Integumentary: normal - Neurologic Neurologic: CNII-XII intact - Musculoskeletal Musculoskeletal: generalized weakness - Psychiatric Psychiatric: A&O x's 3, appropriate affect, intact judgment & insight Results CBC & Chem 7: 02/01/18 04:35 02/01/18 04:35 Labs: Abnormal Lab Results - Last 24 Hours (Table) 01/31/18 02/01/18 02/01/18 Range/Units 15:47 04:35 04:35 RBC 3.45 L (4.30-5.90) m/uL Hgb 10.2 L (13.0-17.5) gm/dL Hct 31.0 L (39.0-53.0) % RDW 16.0 H (11.5-15.5) % Lymphocytes # (Manual) 0.47 L (1.0-4.8) k/uL Sodium 134 L (137-145) mmol/L Chloride 96 L (98-107) mmol/L Glucose 114 H (74-99) mg/dL POC Glucose (mg/dL) 136 H (75-99) mg/dL Chest x-ray: report reviewed Thrombosis Risk Factor Assmnt - Choose All That Apply Any of the Below Risk Factors Present?: Yes Each Factor Represents 1 point: Swollen legs (current) Each Risk Factor Represents 2 Points: Malignancy Each Risk Factor Represents 3 Points: Age 75 years or older Other congenital or acquired thrombophilia - If yes, enter type in comment: No Thrombosis Risk Factor Assessment Total Risk Factor Score: 6 Thrombosis Risk Factor Assessment Level: High Risk Assessment and Plan Plan: Assessment Pleural effusion Pericardial effusion Mesothelioma the lung Hypertension Degenerative joint disease History of pneumonia Plan I consultation with cardiac surgeon and sheet metal smith Had discussion with family and patient that patient wishes to be transferred home with hospice care
--- NOTE | 2018-02-01 12:04 | P.DS ---
Providers Date of admission: 01/31/18 15:42 Expected date of discharge: 02/01/18 Attending physician: Jean Hickey Consults: 01/31/18 16:55 Consult Physician Routine Consulting Provider: Kaylee Norris Consult Reason/Comments: Possible Pericardiocentesis Do you want consulting provider notified?: Already Contacted Consult Physician Routine Consulting Provider: Henrik Fleming Consult Reason/Comments: Chest pain Do you want consulting provider notified?: Already Contacted Consult Physician Stat Consulting Provider: Liza Hua Consult Reason/Comments: ICU Management Do you want consulting provider notified?: Already Contacted 01/31/18 17:14 Consult Physician Stat Consulting Provider: Dedrick Jimenez Consult Reason/Comments: Mesothelioma Do you want consulting provider notified?: Yes Primary care physician: Jean Hickey Pertinent Studies: 77-year-old male was transferred over from the [facility]. Had cardiology surgeon consultation. After discussion with family and patient they' ve made decision to use as services of hospice patient wanting to be discharged home to hospice Assessment Pleural effusion Pericardial effusion Mesothelioma of lung end-stage Hypertension Degenerative joint disease History of pneumonia Plan Transfer to hospice care Plan - Discharge Summary New Discharge Prescriptions: New Ipratropium-Albuterol Nebulize [Duoneb 0.5 mg-3 mg/3 ml Soln] 3 ml INHALATION RT-TID ampul.neb Continue ALPRAZolam [Xanax] 0.5 mg PO DAILY PRN PRN Reason: Anxiety fentaNYL 25MCG/HR PATCH [Duragesic 25MCG/HR] 1 patch TRANSDERM Q72H Hydrocodone/Acetaminophen [[place] 10-325] 1 tab PO Q6H PRN PRN Reason: Pain Discontinued Aspirin 81 mg PO DAILY Hydrochlorothiazide [Hydrodiuril] 25 mg PO DAILY Sennosides [Senna] 8.6 mg PO DAILY PRN PRN Reason: Constipation Pregabalin [Lyrica] 75 mg PO BID Docusate [Colace] 100 mg PO BID PRN PRN Reason: Constipation Discharge Medication List ALPRAZolam [Xanax] 0.5 mg PO DAILY PRN 01/31/18 [History] Hydrocodone/Acetaminophen [[place] 10-325] 1 tab PO Q6H PRN 01/31/18 [History] fentaNYL 25MCG/HR PATCH [Duragesic 25MCG/HR] 1 patch TRANSDERM Q72H 01/31/18 [ History] Ipratropium-Albuterol Nebulize [Duoneb 0.5 mg-3 mg/3 ml Soln] 3 ml INHALATION RT -TID ampul.neb 02/01/18 [Rx]
[2018-02-01] MEDS: HYDROcodone/APAP 10-325MG 1 EACH TAB PO PRN (12:30)
--- NOTE | 2018-02-01 12:38 | P.CNPUL ---
History of Present Illness Consult date: 02/01/18 Reason for consult: pleural effusion History of present illness: Toan Watson is a 77 y.o. male Being seen examined and evaluated today on rounds. The patient came in [facility] with severe pain as well as acute respiratory failure with hypoxia needing supplemental oxygen. 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 The patient is currently involved in a clinical trial with med "[id number]". Patient states he has been having some chronic back and chest pain and is what he came in for when he was noted to have some oxygen desaturations. He denies any history of home O2 use, COPD, asthma and never was a smoker. He did work in the [employer] and also in a [employer] room as well as [employer]. The patient states in the last 3 weeks he has had some significant weight gain and re-regards to fluid retention. He continues to have the good appetite. States he can't sleep in regards to pain. He does have shortness of breath with exertion and activity. Denies any cough or congestion. Patient CT of the chest was negative for PE however did show a loculated pleural effusion with extensive atelectasis. Patient has previously had a right-sided chest tube last February or March at [facility] with Dr. Mulligan. Now his fluid is on the left side and was transferred back to [facility] on with his cardiothoracic surgeon Dr. Mulligan. Upon evaluation from cardiothoracic surgeon they recommended that the patient was not a surgical candidate at that time. Patient also seen by oncology and discussion regarding palliative/hospice care was discussed as well as the patient's poor prognosis. Upon examination today the patient is resting up in bed on 4 L of supplemental oxygen. Family is at bedside. He continues to have shortness of breath with exertion and activity. He is weak. Conversation with the patient and his daughter at length in regards to his prognosis and hospice care. The patient would like to go forth with hospice at this time. Review of Systems 14 point review of systems was completed and is negative unless noted above in the HPI. Past Medical History Past Medical History: Cancer, Hypertension, Pneumonia Additional Past Medical History / Comment(s): Asbestos exposure which is work related (no evidence of asbestosis), mesothelioma, BACK ISSUES with herniated disc.Shingles, pneumonia in January, intermittent swelling feet History of Any Multi-Drug Resistant Organisms: None Reported Date of last positivie culture/infection: unknown MDRO Source:: unknown Past Surgical History: Orthopedic Surgery Additional Past Surgical History / Comment(s): reattached LEFT PINKY, epidural pain injections; right Pleurx catheter March 2017. Past Anesthesia/Blood Transfusion Reactions: No Reported Reaction Past Psychological History: No Psychological Hx Reported Smoking Status: Former smoker Past Alcohol Use History: None Reported Past Drug Use History: None Reported - Past Family History Sister(s) Family Medical History: Cancer Additional Family Medical History / Comment(s): lung Medications and Allergies Home Medications Medication Instructions Recorded Confirmed Type ALPRAZolam [Xanax] 0.5 mg PO DAILY PRN 01/31/18 01/31/18 History Hydrocodone/Acetaminophen [[place] 1 tab PO Q6H PRN 01/31/18 01/31/18 History 10-325] fentaNYL 25MCG/HR PATCH [Duragesic 1 patch TRANSDERM Q72H 01/31/18 01/31/18 History 25MCG/HR] Ipratropium-Albuterol Nebulize 3 ml INHALATION RT-TID ampul.neb 02/01/18 Rx [Duoneb 0.5 mg-3 mg/3 ml Soln] Allergies Allergy/AdvReac Type Severity Reaction Status Date / Time No Known Allergies Allergy Verified 01/31/18 17:17 Physical Exam Vitals: Vital Signs Temp Pulse Resp BP Pulse Ox 02/01/18 11:00 113/66 02/01/18 10:00 96 34 H 119/76 92 L 02/01/18 09:00 101 H 19 94/68 94 L 02/01/18 08:21 95 02/01/18 08:00 97.8 F 99 18 108/77 95 02/01/18 07:00 93 13 102/73 97 02/01/18 06:00 90 24 119/89 96 02/01/18 05:56 97.8 F 89 15 96 02/01/18 04:00 25 H 02/01/18 01:00 91 25 H 132/87 95 02/01/18 00:00 97.9 F 95 20 119/76 92 L 01/31/18 23:17 16 01/31/18 23:05 95 12 124/80 94 L 01/31/18 23:00 96 16 124/80 94 L 01/31/18 22:00 96 19 160/89 93 L 01/31/18 21:00 102 H 28 H 160/89 92 L 01/31/18 20:00 97.4 F L 101 H 28 H 96/69 94 L 01/31/18 19:00 106 H 25 H 114/61 93 L 01/31/18 18:00 99 29 H 123/66 94 L 01/31/18 17:00 98 24 115/66 95 01/31/18 16:00 104 H 22 122/76 94 L 01/31/18 15:48 105 H 20 94 L Intake and Output 01/31/18 02/01/18 02/01/18 22:59 06:59 14:59 Intake Total 600 560 220 Output Total 151 94 2283 Balance 450 510 -1080 Intake: IV 600 560 220 Sodium Chloride 0.9% 1, 600 560 220 000 ml @ 100 mls/hr IV . Q10H JEANETTE Rx#:[id number] Output: Urine 852 20 4215 Other: Voiding Method Urinal Urinal Urinal # Bowel Movements 0 Weight 88.5 kg GENERAL EXAM: Alert, weak, comfortable in no apparent distress. HEAD: Normocephalic. EYES: Normal reaction of pupils, equal size. NOSE: Clear with pink turbinates. THROAT: No erythema or exudates. NECK: No masses, no JVD. CHEST: No chest wall deformity. LUNGS: Equal air entry with no crackles, wheeze, rhonchi or dullness. Bases diminished CVS: S1 and S2 normal with no audible mumurs, regular rhythm. ABDOMEN: No hepatosplenomegaly, normal bowel sounds, no guarding or rigidity. EXTREMITIES: No edema noted, pedal pulses palpable. CENTRAL NERVOUS SYSTEM: No focal deficits, tone is normal in all 4 extremities. Results - Laboratory Findings CBC and BMP: 02/01/18 04:35 02/01/18 04:35 Abnormal lab findings: Abnormal Labs 01/31/18 02/01/18 02/01/18 15:47 04:35 04:35 RBC 3.45 L Hgb 10.2 L Hct 31.0 L RDW 16.0 H Lymphocytes # (Manual) 0.47 L Sodium 134 L Chloride 96 L Glucose 114 H POC Glucose (mg/dL) 136 H - Diagnostic Findings Chest x-ray: report reviewed, image reviewed Assessment and Plan Assessment: Loculated pleural effusions Acute hypoxic respiratory failure requiring supplemental oxygen Pericardial effusion Hypertension Mesothelioma with asbestos exposure Chronic pain secondary to mesothelioma Plan Medications have been reviewed and will be continued as ordered. Set up informative meeting with hospice to discuss options Cardiothoracic recommendations Pulmonary hygiene and supportive care. CTA and chest x-ray were both reviewed. Pain management Fentanyl patch. PRN pain meds for break through pain only. GI and DVT prophylaxis. Prognosis guarded I performed an examination of the patient and discussed their management with the nurse practitioner. I have reviewed the nurse practitioner's note and agree with the documented findings and plan of care.
[2018-02-01] MEDS ORDERED: IPRATROPIUM-ALBUTEROL 3 ML NEB INHALATION SCH (13:00)
[2018-02-01] MEDS: PREGABALIN 75 MG CAP PO SCH (13:41)
[2018-02-01] MEDS ORDERED: BUDESONIDE 0.5 MG/2 ML NEBU INHALATION SCH (20:00)
== END 2018-02-01 15:53 | disposition hospice, home (50) | DRG 843 ==
LOC: 6ICU 15:42
PROVIDERS: ADMIT Family Medicine; ATTEND Family Medicine
DX: C45.7 Mesothelioma of other sites (principal); J96.01 Acute respiratory failure with hypoxia; I31.3 Pericardial effusion (noninflammatory); J98.11 Atelectasis; C78.2 Secondary malignant neoplasm of pleura; I10 Essential (primary) hypertension; M19.90 Unspecified osteoarthritis, unspecified site; G89.3 Neoplasm related pain (acute) (chronic); E66.9 Obesity, unspecified; Z68.28 Body mass index [BMI] 28.0-28.9, adult; Z79.899 Other long term (current) drug therapy; Z79.82 Long term (current) use of aspirin; Z87.891 Personal history of nicotine dependence; Z87.01 Personal history of pneumonia (recurrent); Z77.090 Contact with and (suspected) exposure to asbestos
CPT/HCPCS: 71045; 80048; 83735; 84100; 85025